=== PATIENT | female | born 1960 | race Caucasian/White ===

== ENCOUNTER → 2021-09-06 09:01 | Outpatient (BNVA) | payer OTHER, SELFPAY | PROVIDERS: PCP Internal Medicine; Visit Provider Nurse Practitioner Family ==

== ENCOUNTER → 2021-12-31 08:29 | Outpatient (BNVA) | payer OTHER, SELFPAY | PROVIDERS: PCP Physician Assistant Medical; Visit Provider Nurse Practitioner Family | DX: G47.33 Obstructive sleep apnea (adult) (pediatric) (principal) ==

== ENCOUNTER 2022-07-15 12:53 | Outpatient (REF) | payer OTHER, SELFPAY ==
[2022-07-15 17:58] LABS: Urine Cytology See Pathology rpt
== END 2022-07-15 12:54 | disposition home or self-care (01) ==
LOC: HO.LAB 12:53
PROVIDERS: PCP Physician Assistant Medical; Visit Provider Nurse Practitioner Family
DX: R31.29 Other microscopic hematuria (principal); N39.0 Urinary tract infection, site not specified
CPT/HCPCS: 51798; 88112

== ENCOUNTER 2022-08-07 10:27 | Outpatient (REF) | payer OTHER, SELFPAY ==
--- NOTE | ~2022-08-07 | US_ITS ---
EXAMINATION: US RETROPERITONEAL COMPLETE (RENAL) CLINICAL INFORMATION: Other microscopic hematuria. COMPARISON: Ultrasound kidneys and bladder 01/30/2016. TECHNIQUE: Real-time imaging of the kidneys and bladder. FINDINGS: RIGHT KIDNEY: 11.8 x 4.2 x 5.5 cm (SAG x AP x TRV). The kidney is normal in size, contour, and echogenicity. Renal cortical thickness is normal. No calculi or focal parenchymal lesions. No hydronephrosis. LEFT KIDNEY: 10.4 x 5.4 x 5.0 cm (SAG x AP x TRV). The kidney is normal in size, contour, and echogenicity. Renal cortical thickness is normal. No calculi or focal parenchymal lesions. No hydronephrosis. BLADDER: Well distended and normal. Bilateral ureteral jets are demonstrated. Prevoid bladder volume is 453 mL. Postvoid bladder volume is 13.7 mL. US/US retroperitoneal comp IMPRESSION: Unremarkable renal ultrasound. Normal bilateral ureteral jets. Small postvoid residual bladder volume.
== END 2022-08-07 10:28 | disposition home or self-care (01) ==
LOC: HO.HMGCX 10:27
PROVIDERS: Visit Provider Nurse Practitioner Family
DX: R31.29 Other microscopic hematuria (principal)
CPT/HCPCS: 76770

== ENCOUNTER 2022-08-15 09:57 | Outpatient (REF) | payer OTHER, SELFPAY ==
[2022-08-15 16:45] LABS: Urine Cytology See Pathology rpt
== END 2022-08-15 09:58 | disposition home or self-care (01) ==
LOC: HO.LAB 09:57
PROVIDERS: PCP Physician Assistant Medical; Visit Provider Nurse Practitioner Family
DX: R31.29 Other microscopic hematuria (principal); Z79.899 Other long term (current) drug therapy
CPT/HCPCS: 88112

== ENCOUNTER → 2022-10-14 09:24 | Outpatient (BNVA) | payer OTHER, SELFPAY | PROVIDERS: PCP Physician Assistant Medical; Visit Provider Nurse Practitioner Family | DX: Z13.89 Encounter for screening for other disorder (principal) ==

== ENCOUNTER 2023-02-17 15:02 | Outpatient (AMB) | payer MEDICARE, OTHER, SELFPAY ==
--- NOTE | 2023-02-17 15:04 | MHC.OFFVIS ---
Intake Intake Visit Reasons: UTI- 6m follow up Intake Note: Patient is present for follow up UTI/Microscopic Hematuria Urology Medication: estrace cream Blood Thinner: none PVR: 7ml's Underground Drill Operator Required: No Accompanied by: Self / Same As Patient Allergies dichloralphenazone [DICHLORALPHENAZONE] Allergy (Mild, Verified 02/17/23 22:37) ITCHING isometheptene [ISOMETHEPTENE] Allergy (Mild, Verified 02/17/23 22:37) ITCHING metronidazole [From FLAGYL] Allergy (Mild, Verified 02/17/23 22:37) RASH Amidrine Allergy (Mild, Uncoded 02/17/23 22:37) Unknown avocado Allergy (Unknown, Uncoded 02/17/23 22:37) diarrhea Duradryl Allergy (Unknown, Uncoded 02/17/23 22:37) Unknown quinoa Allergy (Unknown, Uncoded 02/17/23 22:37) diarrhea Medication List - Last Reconciled 02/17/23 by TREY Jarrett-MAURICE albuterol sulfate 90 mcg/actuation 2 puffs inhalation Q6H PRN calcium carbonate-vitamin D3 600 mg-25 mcg (1,000 unit) caps PO cholecalciferol (vitamin D3) 50 mcg PO DAILY epinephrine 0.3 mg IM Q4H PRN estradiol 0.01%(0.1mg/gram) (Estrace) 1 g vaginal 3XW lorazepam 0.5 mg PO DAILY PRN multivitamin 1 tab PO DAILY sumatriptan succinate 100 mg PO Q2-4H PRN HPI HPI Comments History of Present Illness Details Peg is a 62-year-old female who is a patient of Dr. Groves. She has a past medical history of iron deficiency anemia, celiac disease, umbilical hernia, vitamin-D deficiency, mitral valve prolapse, anxiety, hyperlipidemia, and migraines. She presents to the office today for follow up of her longstanding history of microscopic hematuria. In discussion with the patient today she reports to be doing and feeling well. She reports compliance with her Estrace cream. She reports typically utilizing Estrace cream 2-3 times per week. She reports she continues with infrequent what she calls senatations/feelings to urethra/vaginal area at times. However reports these episodes to be infrequent and not bothersome. In office urinalysis results reviewed with the patient today. 2+ microscopic hematuria otherwise within normal limits. Discussed at length potential causes for microscopic hematuria. Previous cytology from last office visit 09/01 Negative for high-grade urothelial carcinoma. Patient with previous cystoscopy in the past with Dr. Valera and results being within normal limits. She states that she would like to think about having one performed/completed. At this time declines cystoscopy. Imaging from 07/31 and cytology WNL. Discussed continuation with surveillance monitoring regarding microscopic hematuria. [facility] Medical History Microscopic hematuria Surgical History History of hernia surgery Family History Father Cancer Osteoporosis Mother Cancer FHx: colonic polyps Social History Alcohol intake: current Alcohol intake frequency: a few times a month Patient Tobacco Use Status: Never used Tobacco Review of Systems Const Reports no additional complaints Eyes Reports no additional complaints ENT Reports no additional complaints Card Reports as per HPI Resp Reports no additional complaints GI Reports as per HPI Reports as per HPI Neuro Reports no additional complaints and Reports Abnormal speech present Psych Reports as per HPI Physical Exam Const General: cooperative, healthy appearing, comfortable, no acute distress, well developed, alert and Physically active Nutritional Appearance: average body habitus and well nourished Orientation/consciousness: patient oriented x3 Limitations: no limitations HEENT Head: Yes normal to inspection and Yes normocephalic Ears: hearing grossly normal bilaterally Eyes General: appearance normal, both eyes and all related structures Neck Neck: Yes normal visual inspection Chest Chest palpation & inspection: normal inspection of the chest Breast/axilla inspection: normal inspection of the breasts Resp Effort & Inspection: normal respiratory effort and able to speak in complete sentences Cardio Jugular venous distension: no JVD GI Inspection: Yes normal to inspection General: Yes no CVA tenderness Back/Spine/Pelvis Back: no CVA tenderness Skin General skin exam: no rashes or lesions noted Neuro General: patient oriented x3 Cognition (Neuro): normal cognition Speech: Abnormal speech present Gait exam (Neuro): Normal gait present Extrem General: Yes normal to inspection Psych Appearance: grossly normal and well kempt Mental Status: mental status grossly normal Speech and movement: Normal speech and movement present Affect: normal affect Attitude: cooperative Thought process: Normal thought process present Thought content: Normal thought content present Insight: Good insight present (Psych) Judgement: Good judgement present (Psych) Office Procedures Post Void Residual Post Residual Void Post Void Residual (PVR): 7 [id number]-[id number] Void Residual by ultrasound Results AMB Urinalysis, Automated UA Leukoctes 0 Minh/uL Last Edit by [employer] on 02/17/23 15:42 UA Nitrite Negative Last Edit by [employer] on 02/17/23 15:42 UA Urobilinogen 0.2 mg/dL Last Edit by [employer] on 02/17/23 15:42 UA Protein 0 mg/dL Last Edit by [employer] on 02/17/23 15:42 UA pH 6.0 Last Edit by [employer] on 02/17/23 15:42 UA Blood 80 Rajan/uL Last Edit by [employer] on 02/17/23 15:42 UA Specific [place] 1.015 Last Edit by [employer] on 02/17/23 15:42 UA Ketone Negative Last Edit by [employer] on 02/17/23 15:42 UA Bilirubin 0 mg/dL Last Edit by [employer] on 02/17/23 15:42 UA Glucose 0 mg/dL Last Edit by [employer] on 02/17/23 15:42 Results Reviewed Results Reviewed: Laboratory Last Values Urine pH (Auto) 6.0 02/17/23 15:08 Specific [place] (Auto) 1.015 02/17/23 15:08 Urine Protein (Auto) 0 mg/dL 02/17/23 15:08 Glucose (UA)(Auto) 0 mg/dL 02/17/23 15:08 Urine Ketones (Auto) Negative 02/17/23 15:08 Urine Blood (Auto) 80 Rajan/uL 02/17/23 15:08 Urine Nitrite (Auto) Negative 02/17/23 15:08 Urine Bilirubin (Auto) 0 mg/dL 02/17/23 15:08 Urine Urobilinogen (Auto) 0.2 mg/dL 02/17/23 15:08 Leukocyte Esterase (Auto) 0 Minh/uL 02/17/23 15:08 Assessment & Plan Assessment & Plan (1) Microscopic hematuria: Code(s): R31.29 - Other microscopic hematuria Plan In office urinalysis results reviewed with the patient today; as noted above; will send for cytology Previous cytology results reviewed with the patient today. Continue Estrace cream as discussed and prescribed. Educated, encouraged, and instructed on the importance of drinking plenty of water daily. Discussed at length potential causes for microscopic hematuria. Discussed repeat cystoscopy given persistent microscopic hematuria Patient reports to be happy with current voiding parameters. Follow-up in 6 months; if not sooner with any issues, concerns, and or questions. Orders: Orders AMB Urinalysis Automated Today Z13.9 - Encounter for screening, unspecified AMB Post Void Residual by ultrasound Today R31.29 - Other microscopic hematuria Urine Cytology Today R31.29 - Other microscopic hematuria Patient Instructions: The patient had an opportunity to ask questions regarding the treatment plan. All questions were answered. Physical exam, labs, and imaging were discussed and reviewed in detail. As well as risks, benefits, and discussion of treatment choices. No major barriers to understanding were identified. The patient expressed understanding and agreement with the above treatment plan. The patient was made aware they should contact our office by phone for worsening of their current condition, the appearance of new symptoms, or with any questions or concerns. Compliance is encouraged with any medications and follow up testing that is ordered. It is a privilege to be allowed the opportunity to participate in? your urological care.? Again, if you have any questions or concerns If you have any questions or concerns please do not hesitate to contact me. The office is [phone]. This note is constructed using voice recognition software. While every effort has been made to ensure accuracy communication and outreach manager errors may have been included. Yours sincerely, LAURYN Jarrett Coding Level of Care Code Est Pt Level 3 (89195) Diagnoses Microscopic hematuria R31.29 CPT Codes Post Residual Void - PVR CPT Code: 93364-Ghtw Void Residual by ultrasound ([id number])
== END 2023-02-17 16:15 | disposition home or self-care (01) ==
PROVIDERS: Visit Provider Nurse Practitioner Family
DX: R31.29 Other microscopic hematuria (principal)
CPT/HCPCS: 99213

== ENCOUNTER → 2023-02-17 15:02 | Outpatient (BNVA) | payer OTHER, SELFPAY | PROVIDERS: Visit Provider Nurse Practitioner Family | DX: R31.29 Other microscopic hematuria (principal); N39.0 Urinary tract infection, site not specified; Z79.899 Other long term (current) drug therapy | CPT/HCPCS: 51798 ==

== ENCOUNTER 2023-04-20 09:12 | Outpatient (AMB) | payer MEDICARE, OTHER, SELFPAY ==
--- NOTE | 2023-04-20 09:23 | A.OFFVIS_ITS ---
Intake Vital Signs 04/20/23 09:25 Height 5 ft 5 in Weight 135 lb 8 oz BMI 22.5 BP 124/70 Blood Pressure Location Rt brachial Position Sitting Pulse 61 Pulse Source Pulse Oximeter Intake Visit Reasons: 6mnts f/u Migraine Intake Note: Patient presents for 6 month follow up migraines. Patient states I have no concerns everything is about the same. Allergies dichloralphenazone [DICHLORALPHENAZONE] Allergy (Mild, Verified 04/20/23 09:26) ITCHING isometheptene [ISOMETHEPTENE] Allergy (Mild, Verified 04/20/23 09:26) ITCHING metronidazole [From FLAGYL] Allergy (Mild, Verified 04/20/23 09:26) RASH Amidrine Allergy (Mild, Uncoded 04/20/23 09:26) Unknown avocado Allergy (Unknown, Uncoded 04/20/23 09:26) diarrhea Duradryl Allergy (Unknown, Uncoded 04/20/23 09:26) Unknown quinoa Allergy (Unknown, Uncoded 04/20/23 09:26) diarrhea Medication List - Last Reconciled 04/20/23 by RTEY Zhang albuterol sulfate 90 mcg/actuation 2 puffs inhalation Q6H PRN calcium carbonate-vitamin D3 600 mg-25 mcg (1,000 unit) caps PO cholecalciferol (vitamin D3) 50 mcg PO DAILY epinephrine 0.3 mg IM Q4H PRN estradiol 0.01%(0.1mg/gram) (Estrace) 1 g vaginal 3XW lorazepam 0.5 mg PO DAILY PRN multivitamin 1 tab PO DAILY sumatriptan succinate 100 mg PO Q2-4H PRN HPI HPI Comments History of Present Illness Details 63-yr-old female presents for f/u visit. Pt denies any significant interval medical changes. She notes that she is not using the green light as much in the summer due to being overall busier. She had the following headache days- 4 in January, 10 in February, 10 in Mar. All but one, occur later in the night. Only one attack occurred in the day. She is using Sumatriptan for most attacks, may use an OTC analgesic. Sometimes she has nausea after taking the Sumatriptan- she wonders if this is the migraine or the Sumatriptan. She is curious about using B2 and Mag. She is using her CPAP nightly with good effect. Tolerating CPAP at lower pressure of 6 cmH2O better, but still has some mild GI gas- but does not think it is bothersome enough to lower her pressure. Current compliance report: CPAP 6 cmH2O w/ EPR off, 100% use > 4 hrs, residual AHI 1.6/hr. [facility] Medical History Microscopic hematuria Surgical History History of hernia surgery Family History Father Cancer Osteoporosis Mother Cancer FHx: colonic polyps Social History Alcohol intake: current Alcohol intake frequency: a few times a month Patient Tobacco Use Status: Never used Tobacco Review of Systems Const All systems reviewed & are unremarkable except as noted in HPI and below Physical Exam Vital Signs: Last Vital Signs Pulse 61 04/20/23 09:25 BP 124/70 04/20/23 09:25 BMI result Body Mass Index 22.5 Const General: cooperative and no acute distress Orientation/consciousness: patient oriented x3 HEENT Head: Yes normocephalic Resp Effort & Inspection: normal respiratory effort and able to speak in complete sentences Neuro General: patient oriented x3, gait normal and CN's II-XI intact bilaterally Cognition (Neuro): normal cognition Motor exam (neuro): 5/5 motor strength present throughout Psych Appearance: grossly normal Mental Status: mental status grossly normal Speech and movement: Normal speech and movement present Affect: normal affect Attitude: cooperative Thought process: Normal thought process present Thought content: Normal thought content present Insight: Good insight present (Psych) Judgement: Good judgement present (Psych) Assessment & Plan Assessment & Plan (1) Severe obstructive sleep apnea: Comment: AHI 26/hr, O2 raj 88%. Code(s): G47.33 - Obstructive sleep apnea (adult) (pediatric) (2) Migraine without aura: Code(s): G43.009 - Migraine without aura, not intractable, without status migrainosus Plan For TRISTON- Continue CPAP 6 cmH2O nightly, as patient is experiencing good clinical effect from use. For migraine- Start OTC Riboflavin 400mg qam and Magnesium 400mg qhs. May use OTC Aleve tablets or liquid gels which show for mild headaches. May continue sumatriptan 50 mg at onset of migraine. May use CPAP at onset of migraine. Continue green light tx. f/u in 6 months or sooner prn. Medications: New riboflavin (vitamin B2) 400 mg PO DAILY 30 days 30 tabs 6RF magnesium oxide may hold for loose stools 400 mg PO BEDTIME 30 days 30 tabs 6RF Coding Level of Care Code Est Pt Level 4 (58889) Diagnoses Severe obstructive sleep apnea G47.33 Migraine without aura G43.009
[2023-04-20 09:25] VITALS: BP 124/70; PULSE 61; BMI 22.5
== END 2023-04-20 10:26 | disposition home or self-care (01) ==
PROVIDERS: Visit Provider Nurse Practitioner Family
DX: G47.33 Obstructive sleep apnea (adult) (pediatric) (principal); G43.009 Migraine without aura, not intractable, without status migrainosus
CPT/HCPCS: 99214

== ENCOUNTER → 2023-04-20 09:12 | Outpatient (BNVA) | payer OTHER, SELFPAY | PROVIDERS: Visit Provider Nurse Practitioner Family ==

== ENCOUNTER 2023-08-18 09:26 | Outpatient (REF) | payer MEDICARE, OTHER, SELFPAY ==
[2023-08-18 18:03] LABS: Urine Cytology See Pathology rpt
== END 2023-08-18 09:27 | disposition home or self-care (01) ==
LOC: HO.LNP 09:26
PROVIDERS: PCP Physician Assistant Medical; Visit Provider Nurse Practitioner Family
DX: R31.29 Other microscopic hematuria (principal)
CPT/HCPCS: 51798; 81003; 88112

== ENCOUNTER 2023-08-18 09:26 | Outpatient (AMB) | payer MEDICARE, OTHER, SELFPAY ==
--- NOTE | 2023-08-18 09:26 | MHC.OFFVIS ---
Intake Intake Visit Reasons: 6m/ follow up Intake Note: Patient is present for follow up UTI/Microscopic Hematuria Urology Medication: estrace cream Blood Thinner: none PVR: 0ml's Director [employer]s Required: No Accompanied by: Self / Same As Patient Allergies dichloralphenazone [DICHLORALPHENAZONE] Allergy (Mild, Verified 08/18/23 10:13) ITCHING isometheptene [ISOMETHEPTENE] Allergy (Mild, Verified 08/18/23 10:13) ITCHING metronidazole [From FLAGYL] Allergy (Mild, Verified 08/18/23 10:13) RASH Amidrine Allergy (Mild, Uncoded 08/18/23 10:13) Unknown avocado Allergy (Unknown, Uncoded 08/18/23 10:13) diarrhea Duradryl Allergy (Unknown, Uncoded 08/18/23 10:13) Unknown quinoa Allergy (Unknown, Uncoded 08/18/23 10:13) diarrhea Medication List - Last Reconciled 08/18/23 by TREY Jarrett-MAURICE albuterol sulfate 90 mcg/actuation 2 puffs inhalation Q6H PRN calcium carbonate-vitamin D3 600 mg-25 mcg (1,000 unit) caps PO cholecalciferol (vitamin D3) 50 mcg PO DAILY epinephrine 0.3 mg IM Q4H PRN estradiol 0.01%(0.1mg/gram) (Estrace) 1 g vaginal 3XW lorazepam 0.5 mg PO DAILY PRN magnesium oxide 400 mg PO BEDTIME 30 days multivitamin 1 tab PO DAILY riboflavin (vitamin B2) 400 mg PO DAILY 30 days sumatriptan succinate 100 mg PO Q2-4H PRN HPI HPI Comments History of Present Illness Details Peg is a pleasant 63-year-old female who is a patient of Dr. Groves. She has a past medical history of iron deficiency anemia, celiac disease, umbilical hernia, vitamin-D deficiency, mitral valve prolapse, anxiety, hyperlipidemia, and migraines. She presents to the office today for follow up of her longstanding history of microscopic hematuria. In discussion with the patient today she reports to be doing and feeling well. She reports compliance with her Estrace cream. She reports typically utilizing Estrace cream 2-3 times per week. She reports she continues with infrequent what she calls senatations/feelings to urethra/vaginal area at times. However reports these episodes to be infrequent and not bothersome. She also discusses feeling the sensations have lessened since her last office visit here approximately 6 months ago. In office urinalysis results reviewed with the patient today. 1+ microscopic hematuria otherwise within normal limits. Discussed at length potential causes for microscopic hematuria. Previous cytology from last office visit 09/01 Negative for high-grade urothelial carcinoma. Patient with previous cystoscopy in the past with Dr. Valera and results being within normal limits. Imaging from 07/31 and cytology WNL. Discussed continuation with surveillance monitoring regarding microscopic hematuria. She discusses at length celebrating her 's recent 68th birthday and is looking for to the new year. She otherwise offers no other issues or concerns at this time. [facility] Medical History Microscopic hematuria Surgical History History of hernia surgery Family History Father Cancer Osteoporosis Mother Cancer FHx: colonic polyps Social History Alcohol intake: current Alcohol intake frequency: a few times a month Patient Tobacco Use Status: Never used Tobacco Review of Systems Const Reports no additional complaints Eyes Reports no additional complaints ENT Reports no additional complaints Card Reports as per HPI Resp Reports no additional complaints GI Reports as per HPI Reports as per HPI Musc Reports no additional complaints Neuro Reports no additional complaints Psych Reports as per HPI Endo Reports as per HPI Demian/Lymph Reports no additional complaints Aller/Immun Reports no additional complaints Physical Exam Const General: cooperative, healthy appearing, comfortable, no acute distress, well developed, alert and Physically active Nutritional Appearance: average body habitus and well nourished Orientation/consciousness: patient oriented x3 Limitations: no limitations HEENT Head: Yes normal to inspection and Yes normocephalic Ears: hearing grossly normal bilaterally Eyes General: appearance normal, both eyes and all related structures Neck Neck: Yes normal visual inspection Chest Chest palpation & inspection: normal inspection of the chest Breast/axilla inspection: normal inspection of the breasts Resp Effort & Inspection: normal respiratory effort and able to speak in complete sentences Cardio Jugular venous distension: no JVD GI Inspection: Yes normal to inspection General: Yes no CVA tenderness Back/Spine/Pelvis Back: no CVA tenderness Skin General skin exam: no rashes or lesions noted Neuro General: patient oriented x3 Cognition (Neuro): normal cognition Gait exam (Neuro): Normal gait present Extrem General: Yes normal to inspection Psych Appearance: grossly normal and well kempt Mental Status: mental status grossly normal Speech and movement: Normal speech and movement present Affect: normal affect Attitude: cooperative Thought process: Normal thought process present Thought content: Normal thought content present Insight: Good insight present (Psych) Judgement: Good judgement present (Psych) Office Procedures Post Void Residual Post Residual Void Post Void Residual (PVR): 0 31715-Eqrb Void Residual by ultrasound Results AMB Urinalysis, Automated UA Leukoctes 0 Minh/uL Last Edit by [employer] on 08/18/23 09:41 UA Nitrite Negative Last Edit by [employer] on 08/18/23 09:41 UA Urobilinogen 0.2 mg/dL Last Edit by [employer] on 08/18/23 09:41 UA Protein 0 mg/dL Last Edit by [email or web address] on 08/18/23 09:41 UA pH 6.0 Last Edit by [employer] on 08/18/23 09:41 UA Blood 25 Rajan/uL Last Edit by [employer] on 08/18/23 09:41 UA Specific [place] 1.005 Last Edit by [employer] on 08/18/23 09:41 UA Ketone Negative Last Edit by [employer] on 08/18/23 09:41 UA Bilirubin 0 mg/dL Last Edit by [employer] on 08/18/23 09:41 UA Glucose 0 mg/dL Last Edit by [employer] on 08/18/23 09:41 Results Reviewed Results Reviewed: Laboratory Last Values Urine pH (Auto) 6.0 08/18/23 09:32 Specific [place] (Auto) 1.005 08/18/23 09:32 Urine Protein (Auto) 0 mg/dL 08/18/23 09:32 Glucose (UA)(Auto) 0 mg/dL 08/18/23 09:32 Urine Ketones (Auto) Negative 08/18/23 09:32 Urine Blood (Auto) 25 Rajan/uL 08/18/23 09:32 Urine Nitrite (Auto) Negative 08/18/23 09:32 Urine Bilirubin (Auto) 0 mg/dL 08/18/23 09:32 Urine Urobilinogen (Auto) 0.2 mg/dL 08/18/23 09:32 Leukocyte Esterase (Auto) 0 Minh/uL 08/18/23 09:32 Assessment & Plan Assessment & Plan (1) Microscopic hematuria: Code(s): R31.29 - Other microscopic hematuria Plan In office urinalysis results reviewed with the patient today; as noted above; will send for cytology Previous cytology results reviewed with the patient today. Continue Estrace cream as discussed and prescribed. Educated, encouraged, and instructed on the importance of drinking plenty of water daily. Discussed at length potential causes for microscopic hematuria. Will continue with surveillance monitoring Patient reports to be happy with current voiding parameters. Follow-up in 6 months; if not sooner with any issues, concerns, and or questions. Orders: Orders AMB Post Void Residual by ultrasound Today R30.0 - Dysuria AMB Urinalysis Automated Today Z13.9 - Encounter for screening, unspecified Urine Cytology Today R31.29 - Other microscopic hematuria Patient Instructions: The patient had an opportunity to ask questions regarding the treatment plan. All questions were answered. Physical exam, labs, and imaging were discussed and reviewed in detail. As well as risks, benefits, and discussion of treatment choices. No major barriers to understanding were identified. The patient expressed understanding and agreement with the above treatment plan. The patient was made aware they should contact our office by phone for worsening of their current condition, the appearance of new symptoms, or with any questions or concerns. Compliance is encouraged with any medications and follow up testing that is ordered. It is a privilege to be allowed the opportunity to participate in? your urological care.? Again, if you have any questions or concerns If you have any questions or concerns please do not hesitate to contact me. The office is [phone]. This note is constructed using voice recognition software. While every effort has been made to ensure accuracy intern brand errors may have been included. Yours sincerely, LAURYN Jarrett Coding Level of Care Code Est Pt Level 3 (36403) Diagnoses Microscopic hematuria R31.29 CPT Codes Post Residual Void - PVR CPT Code: 80949-Micz Void Residual by ultrasound ([id number])
== END 2023-08-18 10:07 | disposition home or self-care (01) ==
PROVIDERS: PCP Physician Assistant Medical; Visit Provider Nurse Practitioner Family
DX: R31.29 Other microscopic hematuria (principal); Z13.9 Encounter for screening, unspecified
CPT/HCPCS: 99213

== ENCOUNTER 2023-10-19 09:18 | Outpatient (AMB) | payer MEDICARE, OTHER, SELFPAY ==
--- NOTE | 2023-10-19 09:30 | MHC.OFFVIS ---
Intake Vital Signs 10/19/23 09:33 Height 5 ft Weight 138 lb BMI 26.9 BP 118/72 Blood Pressure Location Rt brachial Position Sitting Pulse 62 Pulse Source Pulse Oximeter Pulse Oximetry (%) 100 Oxygen Delivery Method Room Air Intake Visit Reasons: 6mnts f/u Migraine-LVM Intake Note: Patient presents for 6 month follow up migraines. migraines have been the same,My cpap is going well. Allergies dichloralphenazone [DICHLORALPHENAZONE] Allergy (Mild, Verified 10/19/23 09:45) ITCHING isometheptene [ISOMETHEPTENE] Allergy (Mild, Verified 10/19/23 09:45) ITCHING metronidazole [From FLAGYL] Allergy (Mild, Verified 10/19/23 09:45) RASH Amidrine Allergy (Mild, Uncoded 10/19/23 09:45) Unknown avocado Allergy (Unknown, Uncoded 10/19/23 09:45) diarrhea Duradryl Allergy (Unknown, Uncoded 10/19/23 09:45) Unknown quinoa Allergy (Unknown, Uncoded 10/19/23 09:45) diarrhea Medication List - Last Reconciled 10/19/23 by TREY Zhang albuterol sulfate 90 mcg/actuation 2 puffs inhalation Q6H PRN calcium carbonate-vitamin D3 600 mg-25 mcg (1,000 unit) caps PO cholecalciferol (vitamin D3) 50 mcg PO DAILY epinephrine 0.3 mg IM Q4H PRN estradiol 0.01%(0.1mg/gram) (Estrace) 1 g vaginal 3XW lorazepam 0.5 mg PO DAILY PRN magnesium oxide 400 mg PO BEDTIME 30 days multivitamin 1 tab PO DAILY riboflavin (vitamin B2) 400 mg PO DAILY 30 days rosuvastatin 5 mg PO DAILY sumatriptan succinate 100 mg PO Q2-4H PRN HPI HPI Comments History of Present Illness Details 63-yr-old female presents for f/u visit. In Jun, pt had bronchitis- tx's w/ ABT and prednisone In Jul, mild Covid-19- primarliy exhaustion x's 1 week. In Aug, had head/nasal cold x's 2 weeks. In Sep, pt was tx'd w/ PCN for a strep infection. Pt had migraine days- Jun 10 days, Jul 14, Aug 10 days, Sep- 8 days had a more intense migraine and then next 3 days the migraine was milder, then she had another 7 migraine days (notes that while on N she did not have any headache x's those 7 days). October- so far 2 migraine days. Noticing more GERD s/s during/with her migraine. She is using her CPAP regularly. Generally tolerates this well. Usually, her AHI is < 5/hr, rarely it can be just over 5. However, some days she may wake up with a burning sensation in her nose, and when this occurs she does have a migraine. She has been using Ponaris Nasal Emollient to help with her nasal congestion- saline sprays tend to be more irritating. [employer] Medical History Microscopic hematuria Surgical History History of hernia surgery Family History Father Cancer Osteoporosis Mother Cancer FHx: colonic polyps Social History Alcohol intake: current Alcohol intake frequency: a few times a month Patient Tobacco Use Status: Never used Tobacco Physical Exam Vital Signs: Last Vital Signs Pulse 62 10/19/23 09:33 BP 118/72 10/19/23 09:33 Pulse Ox 100 10/19/23 09:33 Oxygen Delivery Method Room Air 10/19/23 09:33 BMI result Body Mass Index 26.9 Const General: cooperative and no acute distress Orientation/consciousness: patient oriented x3 Resp Effort & Inspection: normal respiratory effort and able to speak in complete sentences Neuro General: patient oriented x3 Cranial nerves: Yes CN's II-XII intact bilaterally Cognition (Neuro): normal cognition Psych Appearance: grossly normal Mental Status: mental status grossly normal Speech and movement: Normal speech and movement present Affect: normal affect Attitude: cooperative Assessment & Plan Assessment & Plan (1) Severe obstructive sleep apnea: Comment: AHI 26/hr, O2 raj 88%. Code(s): G47.33 - Obstructive sleep apnea (adult) (pediatric) (2) Migraine without aura: Code(s): G43.009 - Migraine without aura, not intractable, without status migrainosus Plan For TRISTON- Continue CPAP 6 cmH2O nightly, as patient is experiencing good clinical effect from use. May try using a buffered pressurized saline spray prior to using the Ponaris Nasal Emollient. F/u w/ ENT as scheduled. ? For migraine- OTC Riboflavin 400mg qam and Magnesium 400mg qhs. May use OTC Aleve tablets or liquid gels which show for mild headaches. May continue sumatriptan 50 mg at onset of migraine. May use CPAP at onset of migraine. Continue green light tx. Discussed trying a preventive migraine tx- such as Amitriptyline- pt will consider. Would avoid BBs d/t asthma/COPD dx. ? f/u in 6 months or sooner prn. Coding Level of Care Code Est Pt Level 4 (09148) Diagnoses Severe obstructive sleep apnea G47.33 Migraine without aura G43.009
[2023-10-19 09:33] VITALS: BP 118/72; PULSE 62; O2SAT 100; BMI 26.9
== END 2023-10-19 10:47 | disposition home or self-care (01) ==
PROVIDERS: PCP Physician Assistant Medical; Visit Provider Nurse Practitioner Family
DX: G47.33 Obstructive sleep apnea (adult) (pediatric) (principal); G43.009 Migraine without aura, not intractable, without status migrainosus
CPT/HCPCS: 99214

== ENCOUNTER → 2023-10-19 09:18 | Outpatient (BNVA) | payer OTHER, SELFPAY | PROVIDERS: PCP Physician Assistant Medical; Visit Provider Nurse Practitioner Family ==

== ENCOUNTER 2024-02-16 08:35 | Outpatient (REF) | payer MEDICARE, OTHER, SELFPAY ==
[2024-02-16 16:55] LABS: Urine Cytology See Pathology rpt
== END 2024-02-16 08:36 | disposition home or self-care (01) ==
LOC: HO.LNP 08:35
PROVIDERS: PCP Physician Assistant Medical; Visit Provider Nurse Practitioner Family
DX: R31.29 Other microscopic hematuria (principal); R30.0 Dysuria
CPT/HCPCS: 51798; 81003; 88112; 99212

== ENCOUNTER 2024-02-16 08:35 | Outpatient (AMB) | payer MEDICARE, OTHER, SELFPAY ==
--- NOTE | 2024-02-16 08:47 | A.OFFVIS_ITS ---
Intake Visit Reasons: 6m follow up Candle Maker Required: No Allergies dichloralphenazone [DICHLORALPHENAZONE] Allergy (Mild, Verified 02/16/24 21:52) ITCHING isometheptene [ISOMETHEPTENE] Allergy (Mild, Verified 02/16/24 21:52) ITCHING metronidazole [From FLAGYL] Allergy (Mild, Verified 02/16/24 21:52) RASH Amidrine Allergy (Mild, Uncoded 02/16/24 21:52) Unknown avocado Allergy (Unknown, Uncoded 02/16/24 21:52) diarrhea Duradryl Allergy (Unknown, Uncoded 02/16/24 21:52) Unknown quinoa Allergy (Unknown, Uncoded 02/16/24 21:52) diarrhea Medication List - Last Reconciled 02/16/24 by TREY Jarrett-MAURICE albuterol sulfate 90 mcg/actuation 2 puffs inhalation Q6H PRN amitriptyline 10 mg PO BEDTIME 30 days calcium carbonate-vitamin D3 600 mg-25 mcg (1,000 unit) caps PO cholecalciferol (vitamin D3) 50 mcg PO DAILY epinephrine 0.3 mg IM Q4H PRN estradiol 0.01%(0.1mg/gram) (Estrace) 1 g vaginal 3XW 90 days lorazepam 0.5 mg PO DAILY PRN magnesium oxide 400 mg PO BEDTIME 30 days multivitamin 1 tab PO DAILY riboflavin (vitamin B2) 400 mg PO DAILY 30 days rosuvastatin 5 mg PO DAILY sumatriptan succinate 100 mg PO Q2-4H PRN HPI Comments Details: Peg is a pleasant 63-year-old female who is a patient of Dr. Groves. She has a past medical history of iron deficiency anemia, celiac disease, umbilical hernia, vitamin-D deficiency, mitral valve prolapse, anxiety, hyperlipidemia, and migraines. She presents to the office today for follow up of her longstanding history of microscopic hematuria. In discussion with the patient today she reports to be doing and feeling well. She reports since her last office visit here 6 months ago she has since followed up with a [facility] provider as she wanted to further assess her cronhs disease. She states that she was diagnosed with babesiosis however and following up with her PCP recommendations were made for referral to Infectious Disease. She reports having followed up with an infectious disease doctor at [facility] who did not believe she had babesiosis. She reports having had blood work done that noted a positive VIJAYA and is awaiting referral to life enrichment specialist for further assessment evaluation. She reports she had been feeling somewhat with low energy/fatigue in the beginning of the year however feels this has somewhat subsided. She also reports being unsure if this was related to COVID that she was diagnosed with July of 2023. She reports having stopped her Estrace cream as prescribed as she had felt episodes of urethra/vaginal senatations/feelings she had been experiencing had subsided. She reports having followed up with her obstetrics gyn for lower abdominal/bladder pressure she had been experiencing however this has also subsided. She currently denies any bothersome urinary issues or concerns. In office urinalysis results reviewed with the patient today. 2+ microscopic hematuria otherwise within normal limits. She currently denies urinary urgency, urinary frequency, incontinence, nocturia, hematuria, dysuria, foul smelling urine, changes to urinary stream, flank pain, fever, and or chills. She is happy with her current voiding parameters. PVR 22 mL. Discussed at length potential causes for microscopic hematuria. Previous cytology 09/01 Negative for high-grade urothelial carcinoma 09/02 Negative for high-grade urothelial carcinoma. Patient with previous cystoscopy in the past with Dr. Valera that NAD. She denies any previous history of smoking and or workplace chemical exposure. She otherwise offers no other issues or concerns at this time. [facility] Medical History Microscopic hematuria Surgical History History of hernia surgery Family History Father Cancer Osteoporosis Mother Cancer FHx: colonic polyps Social History Alcohol intake: current Alcohol intake frequency: a few times a month Patient Tobacco Use Status: Never used Tobacco Review of Systems Const Reports no additional complaints Eyes Reports no additional complaints ENT Reports no additional complaints Card Reports as per HPI Resp Reports no additional complaints GI Reports as per HPI Reports as per HPI Musc Reports no additional complaints Neuro Reports no additional complaints Psych Reports as per HPI Endo Reports as per HPI Demian/Lymph Reports no additional complaints Aller/Immun Reports no additional complaints Physical Exam Const General: cooperative, healthy appearing, comfortable, no acute distress, well developed, alert and Physically active Nutritional Appearance: average body habitus and well nourished Orientation/consciousness: patient oriented x3 Limitations: no limitations HEENT Head: Yes normal to inspection and Yes normocephalic Ears: hearing grossly normal bilaterally Eyes General: appearance normal, both eyes and all related structures Neck Neck: Yes normal visual inspection Chest Chest palpation & inspection: normal inspection of the chest Breast/axilla inspection: normal inspection of the breasts Resp Effort & Inspection: normal respiratory effort and able to speak in complete sentences Cardio Jugular venous distension: no JVD GI Inspection: Yes normal to inspection General: Yes no CVA tenderness Back/Spine/Pelvis Back: no CVA tenderness Skin General skin exam: no rashes or lesions noted Neuro General: patient oriented x3 Cognition (Neuro): normal cognition Gait exam (Neuro): Normal gait present Extrem General: Yes normal to inspection Psych Appearance: grossly normal and well kempt Mental Status: mental status grossly normal Speech and movement: Normal speech and movement present Affect: normal affect Attitude: cooperative Thought process: Normal thought process present Thought content: Normal thought content present Insight: Good insight present (Psych) Judgement: Good judgement present (Psych) Office Procedures Post Void Residual Post Residual Void Post Void Residual (PVR): 22 51595-[id number] Void Residual by ultrasound Results AMB Urinalysis, Automated UA Leukoctes 0 Minh/uL Last Edit by Vijaya Moreau on 02/16/24 09:02 UA Nitrite Negative Last Edit by Vijaya Moreau on 02/16/24 09:02 UA Urobilinogen 0 mg/dL Last Edit by Vijaya Moreau on 02/16/24 09:02 UA Protein 0 mg/dL Last Edit by Vijaya Moreau on 02/16/24 09:02 UA pH 6.0 Last Edit by Vijaya Moreua on 02/16/24 09:02 UA Blood 80 Rajan/uL Last Edit by Vijaya Moreau on 02/16/24 09:02 UA Specific [place] 1.010 Last Edit by Vijaya Moreau on 02/16/24 09:02 UA Ketone Negative Last Edit by Vijaya Moreau on 02/16/24 09:02 UA Bilirubin 0 mg/dL Last Edit by Vijaya Moreau on 02/16/24 09:02 UA Glucose 0 mg/dL Last Edit by Vijaya Prieto on 02/16/24 09:02 Results Reviewed Results Reviewed: Laboratory Last Values Urine pH (Auto) 6.0 02/16/24 09:01 Specific [place] (Auto) 1.010 02/16/24 09:01 Urine Protein (Auto) 0 mg/dL 02/16/24 09:01 Glucose (UA)(Auto) 0 mg/dL 02/16/24 09:01 Urine Ketones (Auto) Negative 02/16/24 09:01 Urine Blood (Auto) 80 Rajan/uL 02/16/24 09:01 Urine Nitrite (Auto) Negative 02/16/24 09:01 Urine Bilirubin (Auto) 0 mg/dL 02/16/24 09:01 Urine Urobilinogen (Auto) 0 mg/dL 02/16/24 09:01 Leukocyte Esterase (Auto) 0 Minh/uL 02/16/24 09:01 Assessment & Plan Assessment & Plan (1) Microscopic hematuria: Code(s): R31.29 - Other microscopic hematuria Category: Medical Plan In office urinalysis results reviewed with the patient today; as noted above; will send for cytology Previous cytology results reviewed with the patient today. Continue Estrace cream as discussed and prescribed; refill provided Educated, encouraged, and instructed on the importance of drinking plenty of water daily. Discussed at length potential causes for microscopic hematuria. Will continue with surveillance monitoring at this time Patient reports to be happy with current voiding parameters. Follow-up in 6 months; if not sooner with any issues, concerns, and or questions. Orders: Orders AMB Urinalysis Automated Today R30.0 - Dysuria, R31.29 - Other microscopic hematuria AMB Post Void Residual by ultrasound Today R30.0 - Dysuria, R31.29 - Other microscopic hematuria Urine Cytology Today R31.29 - Other microscopic hematuria Medications: Changed From estradiol 0.01%(0.1mg/gram) (Estrace) 1 g vaginal 3XW 42.5 grams 0RF To estradiol 0.01%(0.1mg/gram) (Estrace) Pea-sized amount to urethra 3 times per week 1 g vaginal 3XW 90 days 42.5 grams 3RF Refilled estradiol 0.01%(0.1mg/gram) (Estrace) Pea-sized amount to urethra 3 times per week 1 g vaginal 3XW 90 days 42.5 grams 3RF Patient Instructions: The patient had an opportunity to ask questions regarding the treatment plan. All questions were answered. Physical exam, labs, and imaging were discussed and reviewed in detail. As well as risks, benefits, and discussion of treatment choices. No major barriers to understanding were identified. The patient expressed understanding and agreement with the above treatment plan. The patient was made aware they should contact our office by phone for worsening of their current condition, the appearance of new symptoms, or with any questions or concerns. Compliance is encouraged with any medications and follow up testing that is ordered. It is a privilege to be allowed the opportunity to participate in? your urological care.? Again, if you have any questions or concerns If you have any questions or concerns please do not hesitate to contact me. The office is [phone]. This note is constructed using voice recognition software. While every effort has been made to ensure accuracy wildlife management professor errors may have been included. Yours sincerely, LAURYN Jarrett Coding Level of Care Code Est Pt Level 4 (15477) Diagnoses Microscopic hematuria R31.29 CPT Codes Post Residual Void - PVR CPT Code: [id number]-[id number] Void Residual by ultrasound ([id number])
== END 2024-02-16 09:40 | disposition home or self-care (01) ==
PROVIDERS: PCP Physician Assistant Medical; Visit Provider Nurse Practitioner Family
DX: R30.0 Dysuria (principal); R31.29 Other microscopic hematuria
CPT/HCPCS: 99214

== ENCOUNTER 2024-05-16 14:23 | Outpatient (AMB) | payer MEDICARE, OTHER, SELFPAY ==
[2024-05-16 14:38] VITALS: BP 118/74; BMI 26.6
--- NOTE | 2024-05-16 14:38 | MHC.OFFVIS ---
Vital Signs 05/16/24 14:38 Height 5 ft Weight 136 lb BMI 26.6 BP 118/74 Blood Pressure Location Rt brachial Intake Visit Reasons: 6 mo f/u Intake Note: Patient presents for follow up Allergies dichloralphenazone [DICHLORALPHENAZONE] Allergy (Mild, Verified 05/16/24 14:43) ITCHING isometheptene [ISOMETHEPTENE] Allergy (Mild, Verified 05/16/24 14:43) ITCHING metronidazole [From FLAGYL] Allergy (Mild, Verified 05/16/24 14:43) RASH Amidrine Allergy (Mild, Uncoded 05/16/24 14:43) Unknown avocado Allergy (Unknown, Uncoded 05/16/24 14:43) diarrhea Duradryl Allergy (Unknown, Uncoded 05/16/24 14:43) Unknown quinoa Allergy (Unknown, Uncoded 05/16/24 14:43) diarrhea HPI Comments Details: 64-yr-old female presents for f/u visit of migraine and TRISTON. Since the last visit, pt had an increase in migarine attacks, and was started on Amitriptyline. Pt reports she is having less migraine days per month, now less than 15 days per month. She is now taking Amitriptyline 5mg qhs- tried taking 10mg but this caused am sleepiness. She also started a type of acupuncture- a pressure type, which does seem to be helping some. Her acute tx is working more effectively. Was noticing burning nose pain w/ CPAP prior to migraine but this improved w/ using pressurized saline nasal spray. She is using her CPAP regularly. Generally tolerates this well. Usually, her AHI is < 5/hr, rarely it can be just over 5. PFSH Medical History Microscopic hematuria Surgical History History of hernia surgery Family History Father Cancer Osteoporosis Mother Cancer FHx: colonic polyps Social History Alcohol intake: current Alcohol intake frequency: a few times a month Patient Tobacco Use Status: Never used Tobacco Physical Exam Vital Signs: Last Vital Signs BP 118/74 05/16/24 14:38 BMI result Body Mass Index 26.6 Const General: cooperative and no acute distress Orientation/consciousness: patient oriented x3 Resp Effort & Inspection: normal respiratory effort and able to speak in complete sentences Neuro General: patient oriented x3 Cranial nerves: Yes CN's II-XII intact bilaterally Cognition (Neuro): normal cognition Psych Appearance: grossly normal Mental Status: mental status grossly normal Speech and movement: Normal speech and movement present Affect: normal affect Attitude: cooperative Assessment & Plan Assessment & Plan (1) Migraine without aura: Code(s): G43.009 - Migraine without aura, not intractable, without status migrainosus Category: Medical (2) Severe obstructive sleep apnea: Comment: AHI 26/hr, O2 raj 88%. Code(s): G47.33 - Obstructive sleep apnea (adult) (pediatric) Category: Medical Plan For TRISTON- Continue CPAP 6 cmH2O nightly, as patient is experiencing good clinical effect from use. Continue buffered pressurized saline spray prior to using the Ponaris Nasal Emollient. F/u w/ ENT as scheduled. ? For migraine- Continue Amitriptyline 5mg qhs- may try to increase to 7.5mg qhs. OTC Riboflavin 400mg qam and Magnesium 400mg qhs. May use OTC Aleve tablets or liquid gels for mild headaches. Continue sumatriptan 50 mg at onset of migraine. May use CPAP at onset of migraine. Continue green light tx. Would avoid BBs d/t asthma/COPD dx. Future considerations- Nortriptyline, Topiramate, CGRP MaB ? f/u in 6 months or sooner prn. Coding Level of Care Code Est Pt Level 4 (26358) Diagnoses Migraine without aura G43.009 Severe obstructive sleep apnea G47.33
== END 2024-05-16 15:26 | disposition home or self-care (01) ==
PROVIDERS: PCP Physician Assistant Medical; Visit Provider Nurse Practitioner Family
DX: G43.009 Migraine without aura, not intractable, without status migrainosus (principal); G47.33 Obstructive sleep apnea (adult) (pediatric)
CPT/HCPCS: 99214

== ENCOUNTER → 2024-05-16 14:23 | Outpatient (BNVA) | payer MEDICARE, OTHER, SELFPAY | PROVIDERS: PCP Physician Assistant Medical; Visit Provider Nurse Practitioner Family | DX: G43.009 Migraine without aura, not intractable, without status migrainosus (principal); G47.33 Obstructive sleep apnea (adult) (pediatric) | CPT/HCPCS: 99212 ==

== ENCOUNTER 2024-08-23 08:22 | Outpatient (REF) | payer MEDICARE, OTHER, SELFPAY ==
[2024-08-23 16:32] LABS: Urine Cytology See Pathology rpt
== END 2024-08-23 08:23 | disposition home or self-care (01) ==
LOC: HO.LAB 08:22
PROVIDERS: PCP Physician Assistant Medical; Visit Provider Nurse Practitioner Family
DX: R31.29 Other microscopic hematuria (principal)
CPT/HCPCS: 51798; 81003; 88112; 99212

== ENCOUNTER 2024-08-23 08:22 | Outpatient (AMB) | payer MEDICARE, OTHER, SELFPAY ==
--- OUTSIDE RECORDS SUMMARY | 2024-08-23 08:44 | XMS_ITS | Patient Health Record ---
[facility] Organization [facility] [place] [address] [place] [address] Care Team Providers Care Transition Specialist Name Role Phone León Holguin Primary Care Provider Unacoreen juan manuel Peterson Leonid Unavailable [phone] Allergies Allergen (clinical drug ingredient) Drug/Non Drug Allergy documented on EMR Reaction Allergy Type Onset Date Status Doradrin (uncoded) rash, itchy hands Allergy Active metronidazole Flagyl rash Drug Allergy Act letty Penicillin rash Drug Allergy Active Reason For Referral No Information Medications Medication SIG (Take, Route, Frequency, Duration) Notes Start Date End Date Status Gabapentin 150 MG as directed Orally Not-Taking Advil 200 MG 1 tablet as needed Orally every 6 hrs 12/15/2012 Not-Taking Melatonin 1 MG 1 capsule at bedtime as needed with food Orally Once a day for 30 day(s) Not-Taking LORazepam 0.5 MG 1 tablet at bedtime as needed Orally Once a day PRN Active SUMAtriptan Succinate 50 MG 1 tablet as needed one time Orally Once a day for 1 day(s) PRN Active Trazodone & Diet Manage Prod 50 MG Orally Not-Taking Custom Orthotics . . . please use metatarsal pad shayna for . 04/23/2015 Not-Taking Voltaren 1 % as directed Externally 07/07/2022 Active Custom Orthotics as directed Add metatarsal pads B/L Dx Hallux Valgus, pes planus B/L 06/18/2021 Active Vitamin D 1000 UNIT 1 tablet Orally Once a day for 30 day(s) Not-Taking Social History Tobacco Use: Social History Observation Description Date Details (start date - stop date) Never Smoker NA - NA Tobacco Use/Smoking Question Answer Notes Are you a: nonsmoker Alcohol Screen Question Answer Notes Did you have a drink contain ing alcohol in the past year? Yes How often did you have a dri nk containing alcohol in the past year? 2 to 3 times a week (3 points) How often did you have 6 or more drinks on one occasion in the past year? Weekly (3 points) Points 6 Interpretation Positive Tobacco use other than smoking: Question Answer Notes Are you an other tobacco user? No Problems Problem Type SNOMED Code ICD Code Onset Dates Problem Status W/U Status Risk Notes Problem Hallux valgus (570027397) Hallux Valgus (735.0) Active confirmed Problem [id number] Hallux valgus (acquired), left foot (M20.12) Active confirmed Problem [id number] Hallux valgus (acquired), right foot (M20.11) Active confirmed Plan Of Treatment Pending Test Test Name Order Date X ray : Foot, left 2V 12/15/2012 X ray : Foot, right 2V 12/15/2012 X ray : Foot, left 3V 07/07/2022 X ray : Foot, right 3V 10/30/2014 X ray : Foot, right 3V 07/07/2022 Insurance Providers Payer Name Payer Address Payer Phone Subscriber Number Group Number Insured Name Patient Relationship to Insured Coverage Start Date Coverage End Date [employer] ([facility]) [address] [place] [id number] [place] [address] Self - patient is the insured Medical (General) History Medical History History ICD Code headaches lyme disease chicken pox measles celiac disease Anemia asthma Back,Hip,and Knee pain CAD (Cholesterol) Surgical History Surgery Date(Month/Year) appendectomy 1992 inguinal hernia 1993
--- NOTE | 2024-08-23 08:46 | MHC.OFFVIS ---
Intake Visit Reasons: 6m follow up Intake Note: Patient is Present for Follow Up Urology Medication: Estradiol Antibiotic Allergies: None Blood Thinners: None Last PVR:22ML Todays PVR: 0ml Matlab Developer Required: No Accompanied by: Self / Same As Patient Allergies dichloralphenazone [DICHLORALPHENAZONE] Allergy (Mild, Verified 08/23/24 09:36) ITCHING isometheptene [ISOMETHEPTENE] Allergy (Mild, Verified 08/23/24 09:36) ITCHING metronidazole [From FLAGYL] Allergy (Mild, Verified 08/23/24 09:36) RASH Amidrine Allergy (Mild, Uncoded 08/23/24 09:36) Unknown avocado Allergy (Unknown, Uncoded 08/23/24 09:36) diarrhea Duradryl Allergy (Unknown, Uncoded 08/23/24 09:36) Unknown quinoa Allergy (Unknown, Uncoded 08/23/24 09:36) diarrhea Medication List - Last Reconciled 08/23/24 by TREY Jarrett-MAURICE albuterol sulfate 90 mcg/actuation 2 puffs inhalation Q6H PRN amitriptyline 10 mg PO BEDTIME 30 days calcium carbonate-vitamin D3 600 mg-25 mcg (1,000 unit) caps PO cholecalciferol (vitamin D3) 50 mcg PO DAILY epinephrine 0.3 mg IM Q4H PRN estradiol 0.01%(0.1mg/gram) (Estrace) 1 g vaginal 3XW 90 days lorazepam 0.5 mg PO DAILY PRN magnesium oxide 400 mg PO BEDTIME 30 days multivitamin 1 tab PO DAILY riboflavin (vitamin B2) 400 mg PO DAILY 30 days rosuvastatin 5 mg PO DAILY sumatriptan succinate 100 mg PO Q2-4H PRN topiramate 25 - 50 mg (1 - 2 x 25 mg) PO BEDTIME 30 days HPI Comments Details: Peg is a pleasant 64-year-old female who is a patient of Dr. Groves. She has a past medical history of iron deficiency anemia, celiac disease, umbilical hernia, vitamin-D deficiency, mitral valve prolapse, anxiety, hyperlipidemia, and migraines. She presents to the office today for follow up of her longstanding history of microscopic hematuria. In discussion with the patient today she discusses her ongoing GI issues she has been experiencing. She discusses her upcoming endoscopy later this week with a provider at [facility]. She discusses late last year she had been experiencing issues with constipation as well as diarrhea at which time she also noted lower urinary tract symptoms. She reports having followed up with her coating technician as well as her obstetrician gynecologist provider at which time a CT was ordered and performed. Patient brings with her today these results. There is no CT findings of abscesses or focal fluid collections in the abdomen and pelvis. Pelvic organs and urinary bladder appear to be unremarkable. Pancreas and kidneys also appeared to be unremarkable. We discussed correlation of bowel issues with lower urinary tract symptoms. Patient reports having had episode of urinary hesitancy however this has since resolved. She discusses her ongoing issues with her migraines in his following up with her neurologist. She reports compliance with Estrace cream as prescribed. She currently denies any bothersome urinary issues or concerns. In office urinalysis results reviewed with the patient today 1+ microscopic hematuria otherwise within normal limits. She currently denies urinary urgency, urinary frequency, incontinence, nocturia, hematuria, dysuria, foul smelling urine, changes to urinary stream, flank pain, fever, and or chills. She is happy with her current voiding parameters. PVR 0mL. Discussed at length potential causes for microscopic hematuria. Previous cytology 09/01 Negative for high-grade urothelial carcinoma, 09/02 Negative for high-grade urothelial carcinoma, 03/02 Negative for high-grade urothelial carcinoma. Patient with previous cystoscopy in the past with Dr. Valera that NAD. She denies any previous history of smoking and or workplace chemical exposure. She otherwise offers no other issues or concerns at this time. [facility] Medical History Microscopic hematuria Surgical History History of hernia surgery Family History Father Cancer Osteoporosis Mother Cancer FHx: colonic polyps Social History Alcohol intake: current Alcohol intake frequency: a few times a month Patient Tobacco Use Status: Never used Tobacco Review of Systems Const Reports no additional complaints Eyes Reports no additional complaints ENT Reports no additional complaints Card Reports as per HPI Resp Reports no additional complaints GI Reports as per HPI Reports as per HPI Musc Reports no additional complaints Psych Reports as per HPI Endo Reports as per HPI Demian/Lymph Reports no additional complaints Aller/Immun Reports no additional complaints Physical Exam Const General: cooperative, healthy appearing, comfortable, no acute distress, well developed, alert and awake Nutritional Appearance: average body habitus Orientation/consciousness: patient oriented x3 Limitations: no limitations HEENT Head: Yes normal to inspection and Yes normocephalic Ears: hearing grossly normal bilaterally Eyes General: appearance normal, both eyes and all related structures Neck Neck: Yes normal visual inspection Chest Chest palpation & inspection: normal inspection of the chest Breast/axilla inspection: normal inspection of the breasts Resp Effort & Inspection: normal respiratory effort and able to speak in complete sentences Cardio Jugular venous distension: no JVD GI Inspection: Yes normal to inspection General: Yes no CVA tenderness Back/Spine/Pelvis Back: no CVA tenderness Skin General skin exam: no rashes or lesions noted Neuro General: patient oriented x3 Cognition (Neuro): normal cognition Gait exam (Neuro): Normal gait present Extrem General: Yes normal to inspection Psych Appearance: grossly normal and well kempt Mental Status: mental status grossly normal Speech and movement: Normal speech and movement present Affect: normal affect Attitude: cooperative Thought process: Normal thought process present Thought content: Normal thought content present Insight: Fair insight present (Psych) Judgement: Fair judgement present (Psych) Office Procedures Post Void Residual Post Residual Void Post Void Residual (PVR): 0 58029-Wxto Void Residual by ultrasound Results AMB Urinalysis, Automated UA Leukoctes 0 Minh/uL Last Edit by JONNY Kapadia on 08/23/24 09:10 UA Nitrite Negative Last Edit by JONNY Kapadia on 08/23/24 09:10 UA Urobilinogen 0.2 mg/dL Last Edit by JONNY Kapadia on 08/23/24 09:10 UA Protein 0 mg/dL Last Edit by JONNY Kapadia on 08/23/24 09:10 UA pH 6.5 Last Edit by JONNY Kapadia on 08/23/24 09:10 UA Blood 25 Rajan/uL Last Edit by JONNY Kapadia on 08/23/24 09:10 UA Specific [facility] 1.000 Last Edit by JONNY Kapadia on 08/23/24 09:10 UA Ketone Negative Last Edit by Shelly Hernández, RMA on 08/23/24 09:10 UA Bilirubin 0 mg/dL Last Edit by Shelly Hernández, RMA on 08/23/24 09:10 UA Glucose 0 mg/dL Last Edit by Shelly Hernández, RMA on 08/23/24 09:10 Results Reviewed Results Reviewed: Laboratory Last Values Urine pH (Auto) 6.5 08/23/24 09:09 Specific [facility] (Auto) 1.000 08/23/24 09:09 Urine Protein (Auto) 0 mg/dL 08/23/24 09:09 Glucose (UA)(Auto) 0 mg/dL 08/23/24 09:09 Urine Ketones (Auto) Negative 08/23/24 09:09 Urine Blood (Auto) 25 Rajan/uL 08/23/24 09:09 Urine Nitrite (Auto) Negative 08/23/24 09:09 Urine Bilirubin (Auto) 0 mg/dL 08/23/24 09:09 Urine Urobilinogen (Auto) 0.2 mg/dL 08/23/24 09:09 Leukocyte Esterase (Auto) 0 Minh/uL 08/23/24 09:09 Assessment & Plan Assessment & Plan (1) Microscopic hematuria: Code(s): R31.29 - Other microscopic hematuria Category: Medical Plan In office urinalysis results reviewed with the patient today; as noted above; will send for cytology Previous cytology results reviewed with the patient today. Continue Estrace cream as discussed and prescribed. Educated, encouraged, and instructed on the importance of drinking plenty of water daily. Discussed at length potential causes for microscopic hematuria. Continue to follow-up with Neurology and Gastroenterology as planned. Will continue with surveillance monitoring at this time Patient reports to be happy with current voiding parameters. Follow-up in 6 months; if not sooner with any issues, concerns, and or questions. Orders: Orders Urine Cytology Today R31.29 - Other microscopic hematuria AMB Urinalysis Automated Today Z13.9 - Encounter for screening, unspecified AMB Post Void Residual by ultrasound Today R30.0 - Dysuria Patient Instructions: The patient had an opportunity to ask questions regarding the treatment plan. All questions were answered. Physical exam, labs, and imaging were discussed and reviewed in detail. As well as risks, benefits, and discussion of treatment choices. No major barriers to understanding were identified. The patient expressed understanding and agreement with the above treatment plan. The patient was made aware they should contact our office by phone for worsening of their current condition, the appearance of new symptoms, or with any questions or concerns. Compliance is encouraged with any medications and follow up testing that is ordered. It is a privilege to be allowed the opportunity to participate in? your urological care.? Again, if you have any questions or concerns If you have any questions or concerns please do not hesitate to contact me. The office is [phone]. This note is constructed using voice recognition software. While every effort has been made to ensure accuracy armoured car escort errors may have been included. Yours sincerely, LAURYN Jarrett Coding Level of Care Code Est Pt Level 3 (38885) Diagnoses Microscopic hematuria R31.29 CPT Codes Post Residual Void - PVR CPT Code: 79626-Eoxy Void Residual by ultrasound ([id number])
== END 2024-08-23 09:40 | disposition home or self-care (01) ==
PROVIDERS: PCP Physician Assistant Medical; Visit Provider Nurse Practitioner Family
DX: R31.29 Other microscopic hematuria (principal); Z13.9 Encounter for screening, unspecified
CPT/HCPCS: 99213

== ENCOUNTER 2025-01-17 11:21 | Outpatient (AMB) | payer MEDICARE, OTHER, SELFPAY ==
[2025-01-17 11:29] VITALS: BP 100/78; BMI 26.2
--- NOTE | 2025-01-17 11:29 | MHC.OFFVIS ---
Vital Signs 01/17/25 11:29 Height 5 ft Weight 134 lb BMI 26.2 BP 100/78 Blood Pressure Location Lt brachial Position Sitting Intake Visit Reasons: 6 mo F/U Intake Note: Patient presents 6 month follow up for migraines/TRISTON- Compliance in chart Manager Collection Required: No Accompanied by: Self / Same As Patient Allergies dichloralphenazone [DICHLORALPHENAZONE] Allergy (Mild, Verified 01/17/25 11:31) ITCHING isometheptene [ISOMETHEPTENE] Allergy (Mild, Verified 01/17/25 11:31) ITCHING metronidazole [From FLAGYL] Allergy (Mild, Verified 01/17/25 11:31) RASH Amidrine Allergy (Mild, Uncoded 08/23/24 09:36) Unknown avocado Allergy (Unknown, Uncoded 08/23/24 09:36) diarrhea Duradryl Allergy (Unknown, Uncoded 08/23/24 09:36) Unknown quinoa Allergy (Unknown, Uncoded 08/23/24 09:36) diarrhea HPI Comments Details: 64-yr-old female presents for f/u visit of migraine and TRISTON. She is experiencing upper GI pressure sensation. For instance, even wearing an under wire bra or a looser non-wired bra- feels like too much pressure. She is still having heart burn s/s. She is struggling w/ constipation- despite using scheduled miralax. She was having bouts of diarrhea- which she now feels was triggered by pepcid tx. Plans to start prilosec- after her f/u GI US. States they had considered Linzess, but possibly held on this due to previous episodes of diarrhea. She is working w/ [facility]- in his scheduled for an abdominal ultrasound. Recently, patient reach out to us as she having daily migraine attack x's 3 weeks. However, more recently she has had 3-4 migraine days per week. Started B2, Mag, Co-Q10. Since the last visit, pt had an increase in migraine attacks. Additionally, her amitriptyline was discontinue. She was trialed on topiramate 25-50 mg which initially made her tired, but then this resolved- initially she felt that it helped, but then she had a week of back to back migraine attacks so she stopped it. Since, she stated that she started taking riboflavin and magnesium consistently and added Co Q10. Since, the migraine frequency has decreased to 3-4 attacks per week. She continues to use OTC analgesics and sumatriptan 33-100mg as needed with the usual good effect, but the headache can come back the next day. She is using her CPAP regularly. Generally tolerates this well-and does not feel that her upper GI pressure/discomfort symptoms are related to her CPAP. 10/12/2024- PAP compliance report [facility] Overall usage 94% Usage greater than 4 hours 84% Average usage days used 5 hours and 14 minutes AirSense 11 AutoSet Serial number: [id number] CPAP 6 cm H2O with EPR 3 Median leaks 0 L/min Residual AHI 1.3 per hour PFSH Medical History Microscopic hematuria Surgical History History of hernia surgery Family History Father Cancer Osteoporosis Mother Cancer FHx: colonic polyps Social History Alcohol intake: current Alcohol intake frequency: a few times a month Patient Tobacco Use Status: Never used Tobacco Physical Exam Vital Signs: Last Vital Signs BP 100/78 01/17/25 11:29 BMI result Body Mass Index 26.2 Const General: cooperative and no acute distress Orientation/consciousness: patient oriented x3 Resp Effort & Inspection: normal respiratory effort and able to speak in complete sentences Neuro General: patient oriented x3 Cranial nerves: Yes CN's II-XII intact bilaterally Cognition (Neuro): normal cognition Psych Appearance: grossly normal Mental Status: mental status grossly normal Speech and movement: Normal speech and movement present Affect: normal affect Attitude: cooperative Assessment & Plan Assessment & Plan (1) Migraine without aura: Code(s): G43.009 - Migraine without aura, not intractable, without status migrainosus Category: Medical Qualifiers: Status migrainosus presence: without status migrainosus Intractability: not intractable Qualified Code(s): G43.009 - Migraine without aura, not intractable, without status migrainosus (2) Severe obstructive sleep apnea: Comment: AHI 26/hr, O2 raj 88%. Code(s): G47.33 - Obstructive sleep apnea (adult) (pediatric) Category: Medical Plan For TRISTON- Continue CPAP 6 cmH2O nightly, as patient is experiencing good clinical effect from use. Continue buffered pressurized saline spray prior to using the Ponaris Nasal Emollient. Patient may benefit from trying a sleep apnea/GERD wedge pillow- which may help her upper GI abdominal discomfort symptoms. Follow-up with ENT as scheduled. Follow-up with GI as scheduled ? For migraine- Patient has discontinued amitriptyline and topiramate- not effective. Continue scheduled OTC Riboflavin 400mg qam, Co Q10 400 mg q.a.m., and Magnesium 400mg qhs. May use OTC Aleve tablets or liquid gels for mild headaches. Continue sumatriptan 100 mg tab- 1/3-1/2-1 tab at onset of migraine. May use CPAP at onset of migraine. Continue green light tx. Patient may benefit from trying a migraine neuromodulation device, such as an eTNS or YURI device- respectively Cefaly/Head-a-Term or Nerivio. Would avoid BBs d/t asthma/COPD dx. Future considerations- CGRP MaB ? f/u in 3-6 months or sooner prn. Coding Level of Care Code Est Pt Level 4 (41973) Diagnoses Migraine without aura and without status migrainosus, not intractable G43.009 Status migrainosus presence: without status migrainosus Intractability: not intractable Severe obstructive sleep apnea G47.33
--- OUTSIDE RECORDS SUMMARY | 2025-01-17 13:39 | XMS_ITS | Encounter Summary ---
Author Organization [facility] Address [address] [place] [address] Care Team Providers Care Viscosity Inspector Name Role Phone León Luevano Primary Care Provider [phone] Reason for Visit * Reason Comments Follow-up Encounter Details Date Type Department Care Team (Latest Contact Info) Description 11/11/2024 9:50 AM EDT Office Visit [facility] [address] [place] [address] Chirag Garcia MD [address] [place] [address] [address] [place] [address] Bradycardia (Primary Dx); Nonrheumatic mitral valve regurgitation; Pure hypercholesterolemia Social History Tobacco Use Types Packs/Day Years Used Date Smoking Tobacco: Never Smokeless Tobacco: Never Alcohol Use Standard Drinks/Week Comments Yes 0 (1 standard drink = 0.6 oz pur e alcohol) rare Housing Instability Answer Date Recorde d Are you worried that in the next 2 months you may not have stable housing? No 10/25/2024 Food Access & Nutrition Answer Date Rec orded Do you have access to a vari ety of food including fruits and vegetables? Yes 10/25/2024 Access to Healthcare Answer Date Record ed Within the last 3 months, tamela w many times did you visit the emergency department for your medical care? 0 10/25/2024 Health Literacy Answer Date Recorded How often do you need to hav e someone help you when you read instructions, pamphlets, or other written material from your doctor or pharmacy? Never 10/25/2024 Caregiver: How often do you need to have someone help you when you read instructions, pamphlets, or other written material from your doctor or pharmacy? Not on file 10/25/2024 Financial Risk Answer Date Recorded How hard is it for you to pa y for the very basics like food, housing, medical care, and air conditioning / heating? Not very hard 10/25/2024 Transportation Answer Date Recorded Has the lack of transportati on kept you from meetings, work, or from getting things needed for daily living? No Has the lack of transportati on kept you from medical appointments or from getting medications? No 10/25/2024 Social Isolation Answer Date Recorded How often do you feel lonely or isolated from th ose around you? Never 10/25/2024 Food Risk Answer Date Recorded Within the past 12 months we worried whether our food would run out before we got money to buy more. Never true 10/25/2024 Within the past 12 months th e food we bought just didn't last and we didn't have money to get more. Never true 10/25/2024 Dependent Care Answer Date Recorded Do you need help finding or paying for care for your loved ones. For example, child welfare assistant or elderly care for an older adult? No 10/25/2024 Education Answer Date Recorded Do you think completing more education or training, like finishing a GED, going to college, or learning a trade, would be helpful for you? No 10/25/2024 Employment and Income Answer Date Recor ded During the last four weeks, have you been actively looking for work? No 10/25/2024 Living Situation Answer Date Recorded What is your living situation? 0 10/25/2024 Interpersonal Safety Answer Date Record ed Physical Abuse 08/25/2024 Verbal Abuse 08/25/2024 Comments No Sex and Gender Information Value Date Recorded Sex Assigned at Female 08/23/2024 12:45 PM EST Legal Sex Female 11:10 PM EST Gender Identity Female 08/23/2024 12:45 PM EST Sexual Orientation Straight 08/23/2024 12 :45 PM EST documented as of this encounter Last Filed Vital Signs Vital Sign Reading Time Taken Comments Blood Pressure 136/70 11/11/2024 9:29 AM EDT Pulse 56 11/11/2024 9:29 AM EDT Temperature - - Respiratory Rate - - Oxygen Saturation 99% 11/11/2024 9:29 AM EDT Inhaled Oxygen Concentration - - Weight 58.9 kg (129 lb 14.4 oz) 11/11/2024 9:29 AM EDT Height 165.1 cm (5' 5 ) 11/11/2024 9:29 AM EDT Body Mass Index 21.62 11/11/2024 9:29 AM EDT documented in this encounter Progress Notes * Chirag Garcia MD - 11/11/2024 9:50 AM EDTAssociated Problem(s): Bradycardia Orders: ECG 12 lead * Chirag Garcia MD - 11/11/2024 9:50 AM EDTAssociated Problem(s): Mitral regurgitation * Chirag Garcia MD - 11/11/2024 9:50 AM EDTAssociated Problem(s): Hyperlipidemia documented in this encounter Plan of Treatment Upcoming Encounters Date Type Department Care Team (Late st Contact Info) Description 01/18/2025 8:15 AM EDT Appointment Radiology Department - [address] [address] 02/13/2025 9:10 AM EDT Office Visit Gastroenterology - [address] [facility] [address] [place] [id number] Charlee Shabazz PA [address] [place] [address] 05/15/2025 11:00 AM EDT Office Visit Orthopedic Surgery - [address] [facility] [address] [place] [address] Luis Peterson, DPM [address] [address] 07/12/2025 8:15 AM EST Office Visit Adult Medicine [facility] [address] [place] [address] León Luevano, PA [address] [place] [address] documented as of this encounter Procedures Procedure Name Priority Date/Time Associated Diagnosis Comments ECG 12-LEAD Routine 11/11/2024 9:39 AM EDT Bradycardia documented in this encounter Results * ECG 12 lead (11/11/2024 9:39 AM EDT) Ventricular Rate ECG 52 BPM GEMUSE Atrial Rate 52 BPM GEMUSE P-R Interval 146 ms GEMUSE QRS Duration 88 ms GEMUSE Q-T Interval 450 ms GEMUSE QTc 418 ms GEMUSE P Wave Gove 86 degrees GEMUSE R Gove 88 degrees GEMUSE T Gove 95 degrees GEMUSE ECG Interpretation Sinus bradycardia Nonspecific T wave abnormality Abnormal ECG No previous ECGs available Confirmed by CHIRAG GARCIA ([id number]) on 11/11/2024 12:32:53 PM GEMUSE 11/11/2024 9:39 AM EDT 11/11/2024 12:32 PM EDT us Chirag Garcia MD ECG ORDERABLES Final Result GEMUSE documented in this encounter Visit Diagnoses Diagnosis Bradycardia- Primary Other specified cardiac dysrhythmias Nonrheumatic mitral valve regurgitation Pure hypercholesterolemia documented in this encounter Discontinued Medications Medication Sig Discontinue Reason Start Date End Da te ferrous sulfate (High Potency Iron) 134 mg (27 mg iron) tablet Take 1 tablet by mouth 1 (one) time each day. Therapy completed 11/11/2024 documented as of this encounter Additional Health Concerns Assessment Noted Time PHQ-9 Depression Total Score: 0 10/26/19 25 12:24 PM EDT A fall risk assessment has been complete d for the patient 07/01/2024 1:51 PM EST documented as of this encounter Care Teams Viscosity Inspector Relationship Specialty Start Date End Date León Luevano PA [address] [place] [address] PCP - General Internal Medicine 07/08/24 documented as of this encounter
== END 2025-01-17 12:38 | disposition home or self-care (01) ==
LOC: HO.HSMS 11:22
PROVIDERS: PCP Physician Assistant Medical; Visit Provider Nurse Practitioner Family
DX: G43.009 Migraine without aura, not intractable, without status migrainosus (principal); G47.33 Obstructive sleep apnea (adult) (pediatric)
CPT/HCPCS: 99214

== ENCOUNTER → 2025-01-17 11:21 | Outpatient (BNVA) | payer MEDICARE, OTHER, SELFPAY | PROVIDERS: PCP Physician Assistant Medical; Visit Provider Nurse Practitioner Family | DX: G43.009 Migraine without aura, not intractable, without status migrainosus (principal); G47.33 Obstructive sleep apnea (adult) (pediatric) | CPT/HCPCS: 99212 ==

== ENCOUNTER 2025-02-20 08:22 | Outpatient (REF) | payer MEDICARE, OTHER, SELFPAY | END 2025-02-20 08:23 | disposition home or self-care (01) | LOC: HO.LNP 08:22 | PROVIDERS: PCP Physician Assistant Medical; Visit Provider Nurse Practitioner Family | DX: R31.29 Other microscopic hematuria (principal); R30.0 Dysuria; Z79.899 Other long term (current) drug therapy; Z13.89 Encounter for screening for other disorder | CPT/HCPCS: 51798; 81003; 88112; 99212 ==

== ENCOUNTER 2025-02-20 08:22 | Outpatient (AMB) | payer MEDICARE, OTHER, SELFPAY ==
--- NOTE | 2025-02-20 08:23 | A.OFFVIS_ITS ---
Intake Visit Reasons: 6m follow up Intake Note: Patient is Present for Follow Up mocxro hematuria Urology Medication: Estradiol Antibiotic Allergies: None Blood Thinners: None Todays PVR:84 mls Director Of Communications Required: No Accompanied by: Self / Same As Patient Allergies dichloralphenazone (DICHLORALPHENAZONE) Allergy (Mild, Verified 02/20/25 09:35) ITCHING isometheptene (ISOMETHEPTENE) Allergy (Mild, Verified 02/20/25 09:35) ITCHING metronidazole (From FLAGYL) Allergy (Mild, Verified 02/20/25 09:35) RASH Amidrine Allergy (Mild, Uncoded 02/20/25 09:35) Unknown avocado Allergy (Unknown, Uncoded 02/20/25 09:35) diarrhea Duradryl Allergy (Unknown, Uncoded 02/20/25 09:35) Unknown quinoa Allergy (Unknown, Uncoded 02/20/25 09:35) diarrhea Medication List - Last Reconciled 02/20/25 by TREY Jarrett-MAURICE albuterol sulfate 90 mcg/actuation 2 puffs inhalation Q6H PRN calcium carbonate-vitamin D3 600 mg-25 mcg (1,000 unit) caps PO cholecalciferol (vitamin D3) 50 mcg PO DAILY coQ10 (ubiquinol) (Qunol Nate CoQ10) 200 mg PO DAILY epinephrine 0.3 mg IM Q4H PRN estradiol 0.01%(0.1mg/gram) (Estrace) 1 g vaginal 3XW 90 days lorazepam 0.5 mg PO DAILY PRN magnesium oxide 400 mg PO BEDTIME 30 days multivitamin 1 tab PO DAILY riboflavin (vitamin B2) 400 mg PO DAILY 30 days rosuvastatin 5 mg PO DAILY sumatriptan succinate 100 mg PO Q2-4H PRN HPI Comments Details: Peg is a pleasant 64-year-old female who is a patient of Dr. Groves. She has a past medical history of iron deficiency anemia, celiac disease, umbilical hernia, vitamin-D deficiency, mitral valve prolapse, anxiety, hyperlipidemia, and migraines. She presents to the office today for follow up of her longstanding history of microscopic hematuria. In discussion with the patient today she discusses her ongoing GI issues she has been experiencing. She discusses having started a recent regimen for her ongoing GI issues and feels this has been helpful. She discusses having increased her MiraLax to twice a day per GI as well as adding alkaline water. 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 She does not feel she has had any bothersome urinary issues or concerns since her last office visit here. She continues to report compliance with Estrace cream as prescribed. In office urinalysis results reviewed with the patient today 1+ microscopic hematuria otherwise within normal limits. She currently denies urinary urgency, urinary frequency, incontinence, nocturia, hematuria, dysuria, foul smelling urine, changes to urinary stream, flank pain, fever, and or chills. She is happy with her current voiding parameters. PVR 84mL. Discussed at length potential causes for microscopic hematuria. Previous cytology 09/01 Negative for high-grade urothelial carcinoma, 09/02 Negative for high-grade urothelial carcinoma, 03/02 Negative for high-grade urothelial carcinoma. Patient with previous cystoscopy in the past with Dr. Valera that NAD. She denies any previous history of smoking and or workplace chemical exposure. She otherwise offers no other issues or concerns at this time. [facility] Medical History Microscopic hematuria Surgical History History of hernia surgery Family History Father Cancer Osteoporosis Mother Cancer FHx: colonic polyps Social History Alcohol intake: current Alcohol intake frequency: a few times a month Patient Tobacco Use Status: Never used Tobacco Review of Systems Const Reports no additional complaints Eyes Reports no additional complaints ENT Reports no additional complaints Card Reports as per HPI Resp Reports no additional complaints GI Reports as per HPI Reports as per HPI Musc Reports no additional complaints Psych Reports as per HPI Endo Reports as per HPI Demian/Lymph Reports no additional complaints Aller/Immun Reports no additional complaints Physical Exam Const General: cooperative, healthy appearing, comfortable, no acute distress, well developed, alert and awake Orientation/consciousness: patient oriented x3 Limitations: no limitations HEENT Head: Yes normal to inspection and Yes normocephalic Ears: hearing grossly normal bilaterally Eyes General: appearance normal, both eyes and all related structures Neck Neck: Yes normal visual inspection Chest Chest palpation & inspection: normal inspection of the chest Breast/axilla inspection: normal inspection of the breasts Resp Effort & Inspection: normal respiratory effort and able to speak in complete sentences Cardio Jugular venous distension: no JVD GI Inspection: Yes normal to inspection General: Yes no CVA tenderness Back/Spine/Pelvis Back: no CVA tenderness Skin General skin exam: no rashes or lesions noted Neuro General: patient oriented x3 Cognition (Neuro): normal cognition Gait exam (Neuro): Normal gait present Extrem General: Yes normal to inspection Psych Appearance: grossly normal and well kempt Mental Status: mental status grossly normal Speech and movement: Normal speech and movement present Affect: normal affect Attitude: cooperative Thought process: Normal thought process present Thought content: Normal thought content present Insight: Fair insight present (Psych) Judgement: Fair judgement present (Psych) Assessment & Plan Assessment & Plan (1) Microscopic hematuria: Code(s): R31.29 - Other microscopic hematuria Category: Medical Plan In office urinalysis results reviewed the patient today; as noted above; will send for urine cytology. PVR 84 mL She currently denies any bothersome urinary issues or concerns. She reports be happy with current voiding parameters. Will continue with surveillance monitoring. We did discussed potential causes of longstanding history of microscopic hematuria as well as further interventions and risks and benefits of these interventions. Continue Estrace cream as discussed and prescribed. Follow-up in 1 year; or sooner with any issues, concerns, and or questions. Orders: Orders Urine Cytology Today R31.29 - Other microscopic hematuria AMB Urinalysis Automated Today Z13.9 - Encounter for screening, unspecified Patient Instructions: The patient had an opportunity to ask questions regarding the treatment plan. All questions were answered. Physical exam, labs, and imaging were discussed and reviewed in detail. As well as risks, benefits, and discussion of treatment choices. No major barriers to understanding were identified. The patient expressed understanding and agreement with the above treatment plan. The patient was made aware they should contact our office by phone for worsening of their current condition, the appearance of new symptoms, or with any questions or concerns. Compliance is encouraged with any medications and follow up testing that is ordered. It is a privilege to be allowed the opportunity to participate in? your urological care.? Again, if you have any questions or concerns If you have any questions or concerns please do not hesitate to contact me. The office is [phone]. This note is constructed using voice recognition software. While every effort has been made to ensure accuracy manager review errors may have been included. Yours sincerely, LAURYN Jarrett Coding Level of Care Code Est Pt Level 3 (91123) Complex EM visit Add On G2211 Diagnoses Microscopic hematuria R31.29
--- OUTSIDE RECORDS SUMMARY | 2025-02-20 08:25 | XMS_ITS | Patient Health Record ---
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 . . please use metatarsal pad shayna; Duration: . 04/23/2015 Not-Taking Voltaren 1 % as directed Externally 07/07/2022 Active Custom Orthotics as directed Add metatarsal pads B/L Dx Hallux Valgus, pes planus B/L 06/18/2021 Active Vitamin D 1000 UNIT 1 tablet Orally Once a day; Duration: 30 day(s) Not-Taking Social History Tobacco Use: [...] W/U Status Risk Notes Problem Hallux valgus (968063632) Hallux Valgus (735.0) Active confirmed Problem Acquired hallux valgus (00512529) Hallux valgus (acquired), left foot (M20.12) Active confirmed Problem Acquired hallux valgus (26412986) Hallux valgus (acquired), right foot (M20.11) Active [...] Coverage Start Date Coverage End Date [employer] ([facility]) [address] [place] [address] [phone] [id number] Peg Azul Self - patient is the insured Medical (General) History Medical History History ICD Code headaches lyme disease chicken pox measles celiac disease Anemia asthma Back,Hip,and Knee pain CAD (Cholesterol) Surgical History Surgery Date(Month/Year) appendectomy 1992 inguinal hernia 1993
--- OUTSIDE RECORDS SUMMARY | 2025-02-20 08:25 | XMS_ITS | Clinical Summary ---
Author Organization [facility] [address] [place] [address] [address] [place] [address] Phone Care Team Providers Care Silo Filler Name Role Phone León Luevano Primary Care Provider [phone] Allergies Active Allergy Reactions Criticality Noted Date Comments Metronidazole Rash Medium 08/19/2024 Food Allergy Formula Diarrhea,Nausea And Vomiting Medium 02/21/2011 avocado Medications clobetasoL (TEMOVATE) 0.05 % cream Apply to affected areas twice daily as needed sparingly. 4 Active riboflavin (VITAMIN B2) 100 mg tablet Take by mouth as needed. Active multivitamin (MULTIPLE VITAMINS ORAL) Take 1 Tab by mouth daily. Active EPINEPHrine (EpiPen 2-Steve) 0.3 mg/0.3 mL injection Inject 0.3 mg into the muscle as needed for Other (anaphylactic reaction). 2-pack. Fill with whichever brand is covered by insurance. 9 Active cholecalciferol (VITAMIN D-3) 50 mcg (2,000 unit) capsule Take by mouth daily as needed. Active estradioL (ESTRACE) 0.01 % (0.1 mg/gram) vaginal cream Insert 2 g into the vagina 1 (one) time each day. Active rosuvastatin (CRESTOR) 5 mg tablet TAKE ONE TABLET BY MOUTH DAILY 90 tablet 1 5 Active SUMAtriptan (IMITREX) 100 mg tablet TAKE ONE TABLET BY MOUTH NEEDED FOR MIGRAINE. MAY REPEAT DOSE ONCE AFTER 2 HOURS IF NEEDED (MAX OF 2 DOSES IN 24 HOURS) 9 tablet 5 Active albuterol HFA (PROAIR HFA ; PROVENTIL HFA ; VENTOLIN HFA) 90 mcg/actuation inhaler INHALE 2 PUFFS INTO LUNGS FOUR TIMES A DAY NEEDED FOR COUGH OR WHEEZING 8.5 g Active magnesium citrate solution Take by mouth 1 (one) time. Active coenzyme Q-10 30 mg capsule Take 1 capsule (30 mg total) by mouth 1 (one) time each day. Active LORazepam (ATIVAN) 0.5 mg tablet Take 1 tablet (0.5 mg total) by mouth every 8 (eight) hours if needed for anxiety. Max Daily Amount: 1.5 mg 30 tablet Active Active Problems Problem Noted Date Diagnosed Date Hallux valgus 02/07/2025 Hallux valgus (acquired), left foot 02/07/2025 Hallux valgus (acquired), right foot 02/07/2025 Uncomplicated asthma 01/10/2025 Bradycardia 09/08/2024 Overview (09/08/2024): Dr. Hoffman Assessment & Plan (01/23/2025 6:51 PM EDT): The patient was found to have a mild sinus bradycardia on today's visit. Artery was noted to be 52 bpm. The patient wears an Apple Watch and occasionally notices her heart rate to go down to 50 bpm. She denies any symptoms of dizziness, near- syncope, or syncope. As such, we will continue monitoring for now. Orders: ECG 12 lead Epigastric pain 08/19/2024 Assessment & Plan (02/13/2025 12:30 PM EDT): Unremarkable extensive workup Suspect functional Will rule out gastroparesis with gastric emptying study Orders: NM Gastric Emptying Study; Future Diarrhea 08/19/2024 Assessment & Plan (11/10/2024 1:30 PM EDT): Orders: Calprotectin, stool; Future Pancreatic elastase 1; Future Gastroesophageal reflux disease without esophagi tis 08/19/2024 TRISTON (obstructive sleep apnea) 06/06/2022 Assessment & Plan (07/08/2024 11:58 AM EST): Orders: Lipid panel with reflex to direct LDL; Future Comprehensive metabolic panel; Future CBC and differential; Future Iron and TIBC; Future Vitamin D 25 hydroxy; Future Ambulatory referral to Pulmonology; Future Hyperlipidemia 06/10/2021 Overview (05/25/2024): Last Assessment & Plan: The patient has a history of hyperlipidemia. She is currently on rosuvastatin 5 mg orally daily. Last lipid panel on 11/09/2023 showed adequate cholesterol control. LFTs on 11/09/2023 were noted to be normal. As such, we will continue her current dose of rosuvastatin. Assessment & Plan (01/23/2025 6:51 PM EDT): The patient has a history of hyperlipidemia. She is currently on rosuvastatin. Will continue her current therapy. Assessment & Plan (07/08/2024 11:58 AM EST): Orders: Lipid panel with reflex to direct LDL; Future Comprehensive metabolic panel; Future CBC and differential; Future Iron and TIBC; Future Vitamin D 25 hydroxy; Future Ambulatory referral to Pulmonology; Future Lab test negative for COVID-19 virus 12/11/2020 Snoring 05/06/2019 Overview (05/25/2024): 04/2019 Home Sleep Study did not reveal sleep apnea or nocturnal hypoxia. Anxiety 10/08/2018 Assessment & Plan (07/08/2024 11:58 AM EST): Orders: Lipid panel with reflex to direct LDL; Future Comprehensive metabolic panel; Future CBC and differential; Future Iron and TIBC; Future Vitamin D 25 hydroxy; Future Ambulatory referral to Pulmonology; Future Umbilical hernia without obstruction and without gangrene 05/28/2016 Headache 03/02/2012 Overview (05/25/2024): Dr. Andres Gabapentin, Imitrex Vulvitis 02/21/2011 Vitamin D deficiency 09/12/2009 Assessment & Plan (07/08/2024 11:58 AM EST): Orders: Lipid panel with reflex to direct LDL; Future Comprehensive metabolic panel; Future CBC and differential; Future Iron and TIBC; Future Vitamin D 25 hydroxy; Future Ambulatory referral to Pulmonology; Future Sinusitis 07/09/2008 Early localized Lyme infection 04/05/2008 Celiac disease 10/19/2006 Overview (05/25/2024): EGD/bx 03/08/2007: pos for celiac. TTG positive at 73. EGD/biopsies 2015, mild celiac changes. Iron deficiency anemia 11/23/2005 Assessment & Plan (07/08/2024 11:58 AM EST): Orders: Lipid panel with reflex to direct LDL; Future Comprehensive metabolic panel; Future CBC and differential; Future Iron and TIBC; Future Vitamin D 25 hydroxy; Future Ambulatory referral to Pulmonology; Future Mitral regurgitation 11/23/2005 Overview (05/25/2024): Last Assessment & Plan: The patient has a history of mitral valve insufficiency. Recent echocardiogram from September 2023 showed evidence of mild mitral valve insufficiency. Her LVEF was noted to be normal on the same study. Her mitral valve insufficiency has no change when compared to her previous echo from 2020. Currently, she denies any cardiac symptoms. As such, would recommend to continue with periodic monitoring of her mitral valve insufficiency with a follow-up echocardiogram in 3 to 5 years. Assessment & Plan (01/23/2025 6:51 PM EDT): The patient has a history of mild MR. Prior echo from September 2023 showed mild MR. The patient will need a follow-up echocardiogram in 2 years for reevaluation of her mitral valve insufficiency. Assessment & Plan (07/08/2024 11:58 AM EST): Orders: Lipid panel with reflex to direct LDL; Future Comprehensive metabolic panel; Future CBC and differential; Future Iron and TIBC; Future Vitamin D 25 hydroxy; Future Ambulatory referral to Pulmonology; Future Resolved Problems Problem Noted Date Diagnosed Date Resolved Date Dyspnea 08/14/2023 11/11/2024 Overview (05/25/2024): Last Assessment & Plan: The patient has symptoms of exertional dyspnea. She also has risk factors for coronary artery disease including the presence of a history of hyperlipidemia and a family history of CAD. Given her exertional symptoms, we will proceed with further testing with a stress echocardiogram to rule out the presence of heart ischemia as a cause of her symptoms. Dizziness 04/17/2021 11/11/2024 Encounters Date Type Department Care Team Description 02/13/2025 9:10 AM EDT Office Visit Gastroenterology - [address] [place] [phone] Charlee Shabazz PA Upper abdominal pain (Primary Dx); Epigastric pain; Chronic idiopathic constipation 01/18/2025 7:59 AM EDT - 01/18/2025 11:59 PM EDT Hospital Encounter Radiology Department - [address] [phone] Epigastric pain Discharge Disposition: Home or Self Care 01/10/2025 8:45 AM EDT Office Visit Adult Medicine [facility] - [address] [phone] León Luevano PA Epigastric pain (Primary Dx); Anxiety; Celiac disease; Pure hypercholesterolemia ; Iron deficiency anemia, unspecified iron deficiency anemia type; TRISTON (obstructive sleep apnea); Nonrheumatic mitral valve regurgitation; Gastroesophageal reflux disease without esophagitis; Vitamin D deficiency; Bradycardia; Uncomplicated asthma, unspecified asthma severity, unspecified whether persistent 12/12/2024 Telephone Gastroenterology - [address] [phone] Charlee Shabazz PA Results 12/09/2024 Telephone Gastroenterology - [address] [phone] Charlee Shabazz PA 11/24/2024 9:37 AM EDT - 11/24/2024 11:59 PM EDT Hospital Encounter Radiology Department - [address] [phone] Encounter for screening mammogram for breast cancer Discharge Disposition: Home or Self Care 11/22/2024 Telephone Gastroenterology - [address] [facility] [address] [place] [address] Charlee Shabazz PA from Last 3 Months Immunizations Name Administration Dates Next Due Hepatitis A-Hepatitis B Adul t (Twinrix) 18yo and older 05/03/2018 Influenza Quadravalent, MDCK , 0.5ml, preservative free (Flucelvax) 6mo and older 06/06/2022,06/05/2021,05/23/2018 Influenza Quadrivalent, 0.5m l, preservative free (Fluarix; FluLaval; Fluzone) ages 6mo and older (Afluria) 3yo and older 06/04/2020 Influenza trivalent, 0.5mL ( Fluad) 65yo and older 07/08/2024,06/09/2023 Influenza trivalent, 0.5mL ( Fluzone High-dose) 65yo and older 06/09/2023 Influenza trivalent, 0.5mL, preservative free (Fluarix; FluLaval; Fluzone) ages 6mo and older (Afluria) 3 years and older 05/28/2016,07/06/2012,08/09/2009 Influenza trivalent, with pr eservative (Fluzone; Afluria) 6mo and older 05/28/2016,07/06/2012,08/09/2009 [employer] SARS-CoV-2 COVID-19, mRNA, LNP-S, preservative free 11/26/2020,11/03/2020,10/08/2020 Pneumococcal conjugate 20 va lent (Prevnar 20, PCV 20) 2mo and older 06/09/2023 Td Tetanus diptheria (Tdvax) 7yo and older 12/09 Td Tetanus diptheria, preser vative free (Tenivac) 7yo and older 12/09/2022 Td, Unspecified 03/08/2004 Tdap Tetanus diptheria acell ular pertussis (Boostrix; Adacel) 7yo and older 11/08/2012 Zoster recombinant (Shingrix ) 19yo and older 08/12/2021,05/06/2021 Surgical History Surgery Date Site/Laterality Comments COLONOSCOPY 06/20/2002 PROCEDURE: HISTORICAL COLONOSCOPY; COMMENT: Negative. MOLE REMOVAL PROCEDURE: HISTORICAL MOLE (REMOVAL OF); COMMENT: Dysplastic nevus abdomen (mild atypia) HERNIA REPAIR PROCEDURE: HISTORICAL HERNIA REPAIR/ING APPENDECTOMY PROCEDURE: CA APPENDECTOMY COLONOSCOPY 03/08/2007 PROCEDURE: HISTORICAL COLONOSCOPY; COMMENT: Negative ESOPHAGOGASTRODUODENOSCOPY 03/08/2007 PROCEDURE: CA EGD TRANSORAL BIOPSY SINGLE/MULTIPLE; COMMENT: duodenal bx: celiac COLONOSCOPY 07/29/2012 PROCEDURE: HISTORICAL COLONOSCOPY; COMMENT: normal COLONOSCOPY 05/26/2016 PROCEDURE: HISTORICAL COLONOSCOPY; COMMENT: random bx: normal. UPPER GASTROINTESTINAL ENDOSCOPY 05/26/2016 PROCEDURE: CA UPPER GI ENDOSCOPY PERFORMED; COMMENT: duodenal bx: mild celiac changes. ESOPHAGOGASTRODUODENOSCOPY 08/10/2024 - 09/09/2024 nl with nl esophageal, sm bowel biopsies Medical History Medical History Date Comments Migraine, unspecified, witho ut mention of intractable migraine without mention of status migrainosus 11/23/2005 DX:Migraine, uns pecified, without mention of intractable migraine without mention of status migrainosus Mitral valve disorders(424.0) 11/23/2005 DX :Mitral valve disorders(424.0) Celiac disease 10/19/2006 DX:Celiac diseas e Family history of malignant neoplasm of gastrointestinal tract 11/27/2006 DX:Family history of maligna nt neoplasm of gastrointestinal tract; COMMENT: single second-degree relative with colon cancer diagnosis at age 75. Negative colonoscopy 06.20.02. Family history of colonic polyps 11/27/2006 DX:Family history of colonic polyps; COMMENT: patient's mom had colon polyps at age 55. Vulvitis 2007 DX:Vulvitis; COM MENT: was seen by Vulvologist in [place] History of dysplastic nevus 02/18/2006 DX:H istory of dysplastic nevus; COMMENT: Dysplastic nevus abdomen (mild atypia) History of actinic keratoses 01/10/2016 DX: History of actinic keratoses; COMMENT: Actinic keratosis Sleep apnea Asthma 2010 Family History Medical History Relation Name Comments Colon cancer Aunt 1 maternal aunt Breast cancer Aunt 2 paternal aunt Other: HIV Brother CABG Father Juan lung cancer, sm oker Hyperlipidemia Father Juan Hypertension Father Juan No Known Problems Maternal Grandfather No Known Problems Maternal Grandmother Colon polyps Mother Amanda osteoporosis, h ip replacements No Known Problems Paternal Grandfather No Known Problems Paternal Grandmother Diabetes Sister Marti Ovarian cancer Neg Hx Uterine cancer Neg Hx Relation Name Status Comments Aunt 1 Aunt 2 Brother Father Juan (Age 84) Maternal Grandfather Maternal Grandmother Mother Amanda (Age 94) Paternal Grandfather Paternal Grandmother Sister Marti Alive Marti Social History Tobacco Use Types Packs/Day Years Used Date Smoking Tobacco: Never Smokeless Tobacco: Never Tobacco Cessation:Counseling Given: Not Answered Alcohol Use Standard Drinks/Week Comments Not Currently 0 (1 standard drink = 0.6 oz [...] Record ed Within the last 3 months, ho betzy many times did you visit the emergency [...] care for your loved ones. For example, director child development center or elderly care for an older adult? [...] Orientation Straight 08/23/2024 12 :45 PM EST Obstetrics History Para Term AB IAB SAB Ectopic Multiple Livin g Live Births 0 0 0 Last Filed Vital Signs Vital Sign Reading Time Taken Comments Blood Pressure 122/76 01/10/2025 8:44 AM EDT Pulse 52 01/10/2025 8:44 AM EDT Temperature 36 C (96.8 F) 01/10/2025 8:44 AM EDT Respiratory Rate 15 01/10/2025 8:44 AM EDT Oxygen Saturation 99% 11/11/2024 9:29 AM EDT Inhaled Oxygen Concentration - - Weight 58.1 kg (128 lb) 02/13/2025 8:59 AM EDT Height 165.1 cm (5' 5 ) 02/13/2025 8:59 AM EDT Body Mass Index 21.3 02/13/2025 8:59 AM EDT Plan of Treatment Upcoming Encounters Date Type Department Care Team (Late st Contact Info) Description 03/21/2025 8:00 AM EDT Appointment [facility] Nuclear Medicine [address] [place] [address] 05/15/2025 11:00 AM EDT Office Visit Orthopedic Surgery [facility] [address] [facility] [address] [place] [phone] Luis Peterson, DPM [address] [facility] [address] [place] [address] 05/17/2025 9:10 AM EDT Office Visit Gastroenterology - 299 [facility] 299 [facility] [address] [place] [address] Charlee Shabazz PA 299 [facility] [address] [place] [address] 07/12/2025 8:15 AM EST Office Visit Adult Medicine [facility] [address] [place] [address] León Luevano PA [address] [place] [address] Health Maintenance Due Date Last Done Comments RSV Immunization Adult Patients (1 - Risk 60-74 years 1-dose series) 2018 Hepatitis B Vaccines (2 of 3 - Hep B Twinrix 3-dose series) 05/31/2018 05/03/2018 COVID-19 Vaccine ( season) 2024 02/21/2022, 07/05/2021, 11/26/2020, Additional history exists Influenza Vaccine (#1) 2025 , 06/09/2023, 06/09/2023, Additional history exists Medicare Annual Wellness Visit 07/08/2025 07/08/2024 Falls Risk Assessment 08/25/2025 08/25/2024 , 07/08/2024, 07/07/2023 Depression Screening 10/25/2025 10/25/2024, 07/07/20 Social Influencers of Health Screening 10/25/2025 10/25/2024 Cervical Cancer Screening: HPV 03/11/2026 03/11/2021 Colorectal Cancer Screening: Colonoscopy 10/07/2026 10/07/2021 Breast Cancer Screening 11/24/2026 11/25/19 25, 11/13/2023, 11/06/2022, Additional history exists Osteoporosis Screening (Bone Density Screening) 05/12/2028 05/12/2018 Cholesterol Screening (Lipid Panel) 01/10/2030 01/10/2025, 07/11/2024, 11/09/2023 DTaP,Tdap,and Td Vaccines (5 - Td or Tdap) 12/09/2032 12/09/2022, 12/09/2022, 11/08/2012, Additional history exists Hepatitis C Screening Completed 09/16/2014 Hepatitis A Vaccines Aged Out 05/03/2018 No long er eligible based on patient's age to complete this topic Zoster Vaccines Completed 08/12/2021, 05/06/2021 Pneumococcal Vaccine: 50+ Years Completed 06/09/2023 HIB Vaccines Aged Out No longer eligi ble based on patient's age to complete this topic HPV Vaccines Aged Out No longer eligi ble based on patient's age to complete this topic IPV Vaccines Aged Out No longer eligi ble based on patient's age to complete this topic MMR Vaccines Aged Out No longer eligi ble based on patient's age to complete this topic Meningococcal ACWY Vaccine Aged Out N o longer eligible based on patient's age to complete this topic Meningococcal B Vaccine Aged Out No l onger eligible based on patient's age to complete this topic RSV Immunization Patients Under 20 months Aged Out No longer eligible based on patient's age to complete this topic Varicella Vaccines Aged Out No longer eligible based on patient's age to complete this topic Procedures Procedure Name Priority Date/Time Associated Diagnosis Comments US ABDOMEN COMPLETE Routine 01/18/2025 8 :24 AM EDT Epigastric pain CBC WITH AUTO DIFFERENTIAL Routine 01/10/2025 9:36 AM EDT Anxiety Celiac disease Pure hypercholesterolemia Iron deficiency anemia, unspecified iron deficiency anemia type TRISTON (obstructive sleep apnea) Nonrheumatic mitral valve regurgitation Gastroesophageal reflux disease without esophagitis Vitamin D deficiency Epigastric pain Bradycardia Uncomplicated asthma, unspecified asthma severity, unspecified whether persistent LIPID PANEL WITH REFLEX TO DIRECT LDL Routine 01/10/2025 9:36 AM EDT Anxiety Celiac disease Pure hypercholesterolemia Iron deficiency anemia, unspecified iron deficiency anemia type TRISTON (obstructive sleep apnea) Nonrheumatic mitral valve regurgitation Gastroesophageal reflux disease without esophagitis Vitamin D deficiency Epigastric pain Bradycardia Uncomplicated asthma, unspecified asthma severity, unspecified whether persistent COMPREHENSIVE METABOLIC PANEL Routine 01/10/2025 9:36 AM EDT Anxiety Celiac disease Pure hypercholesterolemia Iron deficiency anemia, unspecified iron deficiency anemia type TRISTON (obstructive sleep apnea) Nonrheumatic mitral valve regurgitation Gastroesophageal reflux disease without esophagitis Vitamin D deficiency Epigastric pain Bradycardia Uncomplicated asthma, unspecified asthma severity, unspecified whether persistent CBC AND DIFFERENTIAL Routine 01/10/2025 9:36 AM EDT Anxiety Celiac disease Pure hypercholesterolemia Iron deficiency anemia, unspecified iron deficiency anemia type TRISTON (obstructive sleep apnea) Nonrheumatic mitral valve regurgitation Gastroesophageal reflux disease without esophagitis Vitamin D deficiency Epigastric pain Bradycardia Uncomplicated asthma, unspecified asthma severity, unspecified whether persistent IRON AND TIBC Routine 01/10/2025 9:36 AM EDT Anxiety Celiac disease Pure hypercholesterolemia Iron deficiency anemia, unspecified iron deficiency anemia type TRISTON (obstructive sleep apnea) Nonrheumatic mitral valve regurgitation Gastroesophageal reflux disease without esophagitis Vitamin D deficiency Epigastric pain Bradycardia Uncomplicated asthma, unspecified asthma severity, unspecified whether persistent VITAMIN D 25 HYDROXY Routine 01/10/2025 9:36 AM EDT Anxiety Celiac disease Pure hypercholesterolemia Iron deficiency anemia, unspecified iron deficiency anemia type TRISTON (obstructive sleep apnea) Nonrheumatic mitral valve regurgitation Gastroesophageal reflux disease without esophagitis Vitamin D deficiency Epigastric pain Bradycardia Uncomplicated asthma, unspecified asthma severity, unspecified whether persistent THYROID STIMULATING HORMONE WITH REFLEX TO FREE T4 AND FREE T3 Routine 01/10/2025 9:36 AM EDT Anxiety Celiac disease Pure hypercholesterolemia Iron deficiency anemia, unspecified iron deficiency anemia type TRISTON (obstructive sleep apnea) Nonrheumatic mitral valve regurgitation Gastroesophageal reflux disease without esophagitis Vitamin D deficiency Epigastric pain Bradycardia Uncomplicated asthma, unspecified asthma severity, unspecified whether persistent CORTISOL Routine 01/10/2025 9:36 AM EDT Anxiety Celiac disease Pure hypercholesterolemia Iron deficiency anemia, unspecified iron deficiency anemia type TRISTON (obstructive sleep apnea) Nonrheumatic mitral valve regurgitation Gastroesophageal reflux disease without esophagitis Vitamin D deficiency Epigastric pain Bradycardia Uncomplicated asthma, unspecified asthma severity, unspecified whether persistent MG MAMMO DIGITAL SCREENING W RAD BILAT Routine 11/24/2024 9:51 AM EDT Encounter for screening mammogram for breast cancer DEPRESSION SCREENING Routine 07/07/2023 FALLS RISK ASSESSMENT Routine 07/07/2023 COLONOSCOPY Routine 10/07/2021 HPV Routine 03/11/2021 DXA BONE DENSITY STUDY 1+ SITS AXIAL SKEL Routine 05/12/2018 9:25 AM EDT Encounter for screening for osteoporosis HEPATITIS C SCREENING Routine 09/16/2014 from Last 3 Months or Most Recently Relevant to Health Maintenance Results * US Abdomen Complete (01/18/2025 8:24 AM EDT) Anatomical Region Laterality Modality Body Ultrasound 01/18/2025 9:32 AM EDT Impressions 01/18/2025 9:37 AM EDT No abnormality detected. POS [id number] -------- FINAL REPORT -------- Dictated By: Mami Wong Dictated Date: 01/18/2025 09:32 ET Assigned Physician: Mami Wong Reviewed and Electronically Signed By: Mami Wong Signed Date: 01/18/2025 09:37 ET Workstation ID: [id number] Transcribed By: Self Edit Transcribed Date: 01/18/2025 09:32 ET Narrative 01/18/2025 9:37 AM EDT EXAM: Abdominal ultrasound HISTORY: Upper abdominal pain. Epigastric pain. COMPARISON: Ultrasound 06/20/2016, CT abdomen and pelvis 07/21/2024 FINDINGS: Liver: Normal in size measuring 13.0 cm in craniocaudad extent. Parenchymal echotexture appears within normal limits without lesions detected. Gallbladder/Biliary Tree: Gallbladder lumen appears clear without wall thickening or pericholecystic fluid. No intra or extrahepatic biliary ductal dilatation. The common bile duct measures 0.7 cm. Pancreas: No abnormality detected. Spleen: Normal in size measuring 8.6 cm. No focal abnormality. Kidneys: Normal in size with the right measuring 10.5 cm and the left measuring 9.3 cm in craniocaudad extent. No hydronephrosis, focal lesions, or shadowing stones. Vasculature: No abdominal aortic aneurysm. IVC is unremarkable. Procedure Note Mami Wong MD - 01/18/2025 EXAM: Abdominal ultrasound HISTORY: Upper abdominal pain. Epigastric pain. COMPARISON: Ultrasound 06/20/2016, CT abdomen and pelvis 07/21/2024 FINDINGS: Liver: Normal in size measuring 13.0 cm in craniocaudad extent.Parenchymal echotexture appears within normal limits without lesionsdetected. Gallbladder/Biliary Tree: Gallbladder lumen appears clear without wallthickening or pericholecystic fluid. No intra or extrahepatic biliaryductal dilatation. The common bile duct measures 0.7 cm. Pancreas: No abnormality detected. Spleen: Normal in size measuring 8.6 cm. No focal abnormality. Kidneys: Normal in size with the right measuring 10.5 cm and the leftmeasuring 9.3 cm in craniocaudad extent. No hydronephrosis, focallesions, or shadowing stones. Vasculature: No abdominal aortic aneurysm. IVC is unremarkable. IMPRESSION: No abnormality detected. POS [id number] -------- FINAL REPORT -------- Dictated By: Mami Wong Dictated Date: 01/18/2025 09:32 ET Assigned Physician: Mami Wong Reviewed and Electronically Signed By: Mami Wong Signed Date: 01/18/2025 09:37 ET Workstation ID: [id number] Transcribed By: Self Edit Transcribed Date: 01/18/2025 09:32 ET León HEREDIA IMG US PROCEDURES Final R esult * Thyroid stimulating hormone with reflex to free t4 and free t3 (01/10/2025 9:36 AM EDT) TSH 1.42 0.40 - 4.00 mcIU/mL LAB CHEMISTRY METHOD 01/10/2025 1:58 PM EDT [facility] Blood Venous blood specimen / Unknown Venipuncture / Unknown 01/10/2025 9:36 AM EDT 01/10/2025 9:36 AM EDT León HEREDIA LAB BLOOD ORDERABLES Lynda l Result [facility] [address] [place] [address], [place] [phone] * Lipid panel with reflex to direct LDL (01/10/2025 9:36 AM EDT) Cholesterol 182 0 - 200 mg/dL LAB CHEMISTRY METHOD 01/10/2025 3:30 PM EDT [facility] Triglycerides 56 0 - 150 mg/dL LAB CHEMISTRY METHOD 01/10/2025 3:30 PM EDT [facility] HDL 85 >=40 mg/dL LAB CHEMISTRY METHOD 01/10/2025 3:30 PM EDT [facility] LDL Calculated 86 0 - 100 mg/dL LAB CHEMISTRY METHOD 01/10/2025 3:30 PM EDT [facility] VLDL Cholesterol Kaden 11.2 mg/dL LAB CHEMISTRY METHOD 01/10/2025 3:30 PM EDT [facility] Non HDL Chol. (LDL+VLDL) 97 <145 mg/dL LAB CHEMISTRY METHOD 01/10/2025 3:30 PM EDT [facility] Chol/HDL Ratio 2.1 0.0 - 4.4 LAB CHEMISTRY METHOD 01/10/2025 3:30 PM EDT [facility] Blood Venous blood specimen / Unknown Venipuncture / Unknown 01/10/2025 9:36 AM EDT 01/10/2025 9:36 AM EDT León HEREDIA LAB BLOOD ORDERABLES Lynda kline Result [facility] [address] [place] [address], * (ABNORMAL) CBC auto differential (01/10/2025 9:36 AM EDT) WBC 5.7 4.8 - 10.8 K/mcL LAB HEMETOLOGY METHOD 01/10/2025 12:34 PM EDT [facility] RBC 4.30 3.80 - 4.80 M/[facility] LAB HEMETOLOGY METHOD 01/10/2025 12:34 PM EDT [facility] Hemoglobin 13.9 11.5 - 16.0 g/dL LAB HEMETOLOGY METHOD 01/10/2025 12:34 PM EDT [facility] Hematocrit 42.8 35.0 - 47.0 % LAB HEMETOLOGY METHOD 01/10/2025 12:34 PM EDT [facility] MCV 100.0(H) 79.0 - 98.0 FL LAB HEMETOLOGY METHOD 01/10/2025 12:34 PM EDT [facility] MCH 32.5(H) 27.0 - 32.0 pcg LAB HEMETOLOGY METHOD 01/10/2025 12:34 PM EDT [facility] MCHC 32.5 32.0 - 37.0 g/dL LAB HEMETOLOGY METHOD 01/10/2025 12:34 PM EDT [facility] RDW 12.5 11.0 - 15.0 % LAB HEMETOLOGY METHOD 01/10/2025 12:34 PM EDT [facility] Platelets 228 130 - 400 K/[facility] LAB HEMETOLOGY METHOD 01/10/2025 12:34 PM EDT [facility] MPV 10.8 7.0 - 11.0 FL LAB HEMETOLOGY METHOD 01/10/2025 12:34 PM [facility] NRBC 0.0 <1.0 % LAB HEMETOLOGY METHOD 01/10/2025 12:34 PM [facility] NRBC Absolute 0.00 <0.10 K/mcL LAB HEMETOLOGY METHOD 01/10/2025 12:34 PM [facility] Neutrophils Relative 55.8 % LAB HEMETOLOGY METHOD 01/10/2025 12:34 PM [facility] Lymphocytes Relative 24.6 % LAB HEMETOLOGY METHOD 01/10/2025 12:34 PM [facility] Monocytes Relative 10.2 % LAB HEMETOLOGY METHOD 01/10/2025 12:34 PM [facility] Eosinophils Relative 7.4 % LAB HEMETOLOGY METHOD 01/10/2025 12:34 PM [facility] Basophils Relative 1.6 % LAB HEMETOLOGY METHOD 01/10/2025 12:34 PM [facility] Immature Granulocytes Relative 0.4 % LAB HEMETOLOGY METHOD 01/10/2025 12:34 PM [facility] Neutrophils Absolute 3.17 1.50 - 7.00 K/mcL LAB HEMETOLOGY METHOD 01/10/2025 12:34 PM [facility] Lymphocytes Absolute 1.40 1.00 - 5.00 K/mcL LAB HEMETOLOGY METHOD 01/10/2025 12:34 PM [facility] Monocytes Absolute 0.58 0.20 - 1.00 K/mcL LAB HEMETOLOGY METHOD 01/10/2025 12:34 PM [facility] Eosinophils Absolute 0.42 0.00 - 0.50 K/mcL LAB HEMETOLOGY METHOD 01/10/2025 12:34 PM [facility] Basophils Absolute 0.09 0.00 - 0.20 K/mcL LAB HEMETOLOGY METHOD 01/10/2025 12:34 PM EDT [facility] Immature Granulocytes Absolute 0.02 0.00 - 0.03 K/mcL LAB HEMETOLOGY METHOD 01/10/2025 12:34 PM EDT [facility] Blood Venous blood specimen / Unknown Venipuncture / Unknown 01/10/2025 9:36 AM EDT 01/10/2025 9:36 AM EDT [facility] Eleno HEREDIA LAB BLOOD ORDERABLES Lynda l Result [facility] [address] [place] [address], [place] [phone] * Iron and TIBC (01/10/2025 9:36 AM EDT) Iron 96 40 - 150 mcg/dL LAB CHEMISTRY METHOD 01/10/2025 12:55 PM EDT [facility] TIBC 396 250 - 450 mcg/dL LAB CHEMISTRY METHOD 01/10/2025 12:55 PM EDT [facility] Iron Saturation 24 15 - 50 % LAB CHEMISTRY METHOD 01/10/2025 12:55 PM EDT [facility] Blood Venous blood specimen / Unknown Venipuncture / Unknown 01/10/2025 9:36 AM EDT 01/10/2025 9:36 AM EDT León HEREDIA LAB BLOOD ORDERABLES Lynda l Result [facility] [address] [place] [address], [place] [phone] * Vitamin D 25 hydroxy (01/10/2025 9:36 AM EDT) Vit D, 25-Hydroxy 38.5 30.0 - 80.0 ng/mL LAB CHEMISTRY METHOD 01/10/2025 1:58 PM EDT [facility] Blood Venous blood specimen / Unknown Venipuncture / Unknown 01/10/2025 9:36 AM EDT 01/10/2025 9:36 AM EDT León HEREDIA LAB BLOOD ORDERABLES Lynda l Result Performing Organization Address City/[facility]/ZIP Co de Phone Number [facility] [address] [place] [address], [place] [phone] * Cortisol (01/10/2025 9:36 AM EDT) Cortisol 10.7 mcg/dL LAB CHEMISTRY METHOD 01/10/2025 1:58 PM EDT [facility] Blood Venous blood specimen / Unknown Venipuncture / Unknown 01/10/2025 9:36 AM EDT 01/10/2025 9:36 AM EDT Narrative [facility] - 01/10/2025 1:58 PM EDT CORTISOL REFERENCE RANGE 8 AM SPEC: 5.0-23.0 mcg/dL 4 PM SPEC: 3.0-16.0 mcg/dL 8 PM SPEC: <5.0 mcg/dL León HEREDIA LAB BLOOD ORDERABLES Lynda l Result Performing Organization Address [facility]/ZIP Co de Phone Number [facility] [address] [place] [address], [place] [phone] * Comprehensive metabolic panel (01/10/2025 9:36 AM EDT) Sodium 138 133 - 145 mmol/L LAB CHEMISTRY METHOD 01/10/2025 12:57 PM EDT [facility] Potassium 4.0 3.5 - 5.5 mmol/L LAB CHEMISTRY METHOD 01/10/2025 12:57 PM EDT [facility] Chloride 104 96 - 110 mmol/L LAB CHEMISTRY METHOD 01/10/2025 12:57 PM [facility] CO2 29 21 - 32 mmol/L LAB CHEMISTRY METHOD 01/10/2025 12:57 PM [facility] Anion Gap 5 3 - 11 LAB CHEMISTRY METHOD 01/10/2025 12:57 PM [facility] Glucose 83 70 - 100 mg/dL LAB CHEMISTRY METHOD 01/10/2025 12:57 PM [facility] BUN 19 5 - 25 mg/dL LAB CHEMISTRY METHOD 01/10/2025 12:57 PM [facility] Creatinine 0.82 0.50 - 1.10 mg/dL LAB CHEMISTRY METHOD 01/10/2025 12:57 PM [facility] eGFR 79 >=60 mL/min/1. 73m2 LAB CHEMISTRY METHOD 01/10/2025 12:57 PM [facility] Comment:Calculation based on the Chronic Kidney Disease Epidemiology Collaboration (CKD-EPI) equation refit without adjustment for race. BUN/Creatinine Ratio 23.2 LAB CHEMISTRY METHOD 01/10/2025 12:57 PM [facility] Calcium 9.4 8.5 - 10.5 mg/dL LAB CHEMISTRY METHOD 01/10/2025 12:57 PM [facility] AST (SGOT) 35 10 - 42 unit/L LAB CHEMISTRY METHOD 01/10/2025 12:57 PM [facility] ALT (SGPT) 31 10 - 60 unit/L LAB CHEMISTRY METHOD 01/10/2025 12:57 PM [facility] Alkaline Phosphatase 82 42 - 121 unit/L LAB CHEMISTRY METHOD 01/10/2025 12:57 PM [facility] Total Protein 7.5 6.0 - 8.0 g/dL LAB CHEMISTRY METHOD 01/10/2025 12:57 PM [facility] Albumin 4.2 3.2 - 5.0 g/dL LAB CHEMISTRY METHOD 01/10/2025 12:57 PM EDT [facility] Total Bilirubin 0.5 0.0 - 1.4 mg/dL LAB CHEMISTRY METHOD 01/10/2025 12:57 PM EDT [facility] Blood Venous blood specimen / Unknown Venipuncture / Unknown 01/10/2025 9:36 AM EDT 01/10/2025 9:36 AM EDT León HEREDIA LAB BLOOD ORDERABLES Lynda kline Result [facility] [address] [place] [address], [place] [phone] * MG Mammo Digital Screening w Rad bilat (11/24/2024 9:51 AM EDT) Anatomical Region Laterality Modality Breast Bilateral Mammography 11/24/2024 5:06 PM EDT Impressions 11/24/2024 5:06 PM EDT No mammographic evidence of malignancy. BREAST DENSITY: C - The breasts are heterogeneously dense which may obscure small masses. BI-RADS CATEGORY: 1 - NEGATIVE RECOMMENDATION: Screening bilateral mammogram is recommended in 1 year. MAMMO LOCATION: [facility], [address] [place] [address], [id number], . -------- FINAL REPORT -------- Dictated By: Mami Wong Dictated Date: 11/24/2024 17:06 ET Assigned Physician: Mami Wong Reviewed and Electronically Signed By: Mami Wong Signed Date: 11/24/2024 17:06 ET Workstation ID: [id number] Transcribed By: Self Edit Transcribed Date: 11/24/2024 17:06 ET Narrative 11/24/2024 5:06 PM EDT EXAM: Screening Mammogram CLINICAL: 64 years old, Female, routine annual exam. COMPARISON: 11/13/2023 and as far back as 10/25/2020 TECHNIQUE: Bilateral MLO and CC views were obtained digitally with 3-D mammogram (digital breast tomosynthesis). Computer-aided detection was utilized in evaluation of this exam (CAD). FINDINGS: No new suspicious mass, architectural distortion, or suspicious calcifications. Procedure Note Mami Wong MD - 11/24/2024 EXAM: Screening Mammogram CLINICAL: 64 years old, Female, routine annual exam. COMPARISON: 11/13/2023 and as far back as 10/25/2020 TECHNIQUE: Bilateral MLO and CC views were obtained digitally with 3-Dmammogram (digital breast tomosynthesis). Computer-aided detection wasutilized in evaluation of this exam (CAD). FINDINGS: No new suspicious mass, architectural distortion, or suspiciouscalcifications. IMPRESSION: No mammographic evidence of malignancy. BREAST DENSITY: C - The breasts are heterogeneously dense which mayobscure small masses. BI-RADS CATEGORY: 1 - NEGATIVE RECOMMENDATION: Screening bilateral mammogram is recommended in 1 year. MAMMO LOCATION: [facility], [address] [place] [address], [phone], . -------- FINAL REPORT -------- Dictated By: Mami Wong Dictated Date: 11/24/2024 17:06 ET Assigned Physician: Mami Wong Reviewed and Electronically Signed By: Mami Wong Signed Date: 11/24/2024 17:06 ET Workstation ID: [id number] Transcribed By: Self Edit Transcribed Date: 11/24/2024 17:06 ET León HEREDIA IMG BI PROCEDURES Final R esult * Falls Risk Assessment (07/07/2023) Falls Risk Assessment abstracted [facility] Provider HEALTH MAINTENANCE Final Result * Depression Screening (07/07/2023) Depression Screening abstracted [facility] Provider HEALTH MAINTENANCE Final Result * Colonoscopy (10/07/2021) Colonoscopy no interpretation , abstracted Anatomical Region Laterality Modality Other [facility] Provider HEALTH MAINTENANCE Final Result * Cervical Cancer Screening: HPV (03/11/2021) Cervical Cancer Screening: HPV abstracted, negative us Historical Provider HEALTH MAINTENANCE Final Result * DXA BONE DENSITY STUDY 1+ SITS AXIAL SKEL (05/12/2018 9:25 AM EDT) Anatomical Region Laterality Modality Bone Densitometr y 03/22/2018 12:3 1 PM EDT Narrative 05/13/2018 11:33 AM EDT BONE DENSITY (DEXA) Lumbar Spine T-score is 0.1. (SD relative to 20-29 y/o adult) Z-score is 1.5. (SD relative to age matched peers) This is considered normal by WHO criteria. Left Hip T-score is -2.0. Z-score is -0.7. This is considered osteopenia by WHO criteria. There is mild curvature lumbar spine, convexity toward the left. IMPRESSION: This patient is considered to have osteopenia by WHO criteria. This patient has a 8.5% risk of major osteoporotic fracture and a 1.1% risk of hip fracture over the next 10 years. (World Health Organization Fracture Risk Assessment) [facility] Department of Internal Medicine recommends using National Osteoporosis Foundation (NOF) guidelines in treatment decisions related to osteoporosis. NOF guidelines suggest considering treatment for postmenopausal women and men aged 50 or older presenting with the following: History of hip or vertebral fracture. T-score = -2.5 (DXA) at the femoral neck, total hip, or spine, after appropriate evaluation to exclude secondary causes. Low bone mass (T-score between -1.0 and -2.5 at the femoral neck or spine) AND a 10-year probability of a hip fracture = 3% OR a 10-year probability of a major osteoporosis-related fracture = 20% based on the [place]-adapted WHO algorithm Please note that all treatment decisions require clinical judgment and consideration of individual patient factors, including patient preferences, co-morbidities, previous drug use, risk factors not captured in the FRAX model (e.g., frailty, falls, vitamin D deficiency, increased bone turnover, interval significant decline in bone density) and possible under- or over-estimation of fracture risk by FRAX. Optional alternative screening schedule based on giovani Mejia., NEJM August 28, 2011 for patients with osteopenia (based on hip BMD T-score) is as follows: * advanced osteopenia (T scores -2.00 to -2.49), BMD testing every year * moderate osteopenia (T scores -1.50 to -1.99), BMD testing every 5 years mild osteopenia or normal BMD (T scores -1.50 and higher), BMD testing every 15 years Procedure Note Yari Downey MD - 07/29/2022 BONE DENSITY (DEXA) Lumbar Spine T-score is 0.1. (SD relative to 20-29 y/o adult) Z-score is 1.5. (SD relative to age matched peers) This is considered normal by WHO criteria. Left Hip T-score is -2.0. Z-score is -0.7. This is considered osteopenia by WHO criteria. There is mild curvature lumbar spine, convexity toward the left. IMPRESSION: This patient is considered to have osteopenia by WHO criteria. Thispatient has a 8.5% risk of major osteoporotic fracture and a 1.1% risk of hip fracture over the next10 years. (World Health Organization Fracture Risk Assessment) [facility] Department of Internal Medicine recommendsusing National Osteoporosis Foundation (NOF) guidelines in treatment decisions related toosteoporosis. NOF guidelines suggest considering treatment for postmenopausal women and menaged 50 or older presenting with the following: History of hip or vertebral fracture. T-score = -2.5 (DXA) at the femoral neck, total hip, or spine, afterappropriate evaluation to exclude secondary causes. Low bone mass (T-score between -1.0 and -2.5 at the femoral neck or spine)AND a 10-year probability of a hip fracture = 3% OR a 10-year probability of a majorosteoporosis-related fracture = 20% based on the [place]-adapted WHO algorithm Please note that all treatment decisions require clinical judgment andconsideration of individual patient factors, including patient preferences, co- morbidities,previous drug use, risk factors not captured in the FRAX model (e.g., frailty, falls, vitaminD deficiency, increased bone turnover, interval significant decline in bone density) andpossible under- or over-estimation of fracture risk by FRAX. Optional alternative screening schedule based on nathan Mejia al., NEJMJanuary 2011 for patients with osteopenia (based on hip BMD T-score) is as follows: * advanced osteopenia (T scores -2.00 to -2.49), BMD testing every year * moderate osteopenia (T scores -1.50 to -1.99), BMD testing every 5years mild osteopenia or normal BMD (T scores -1.50 and higher), BMD testingevery 15 years Raulito Francis MD IMG DXA PROCEDURES Final Result * Hepatitis C Screening (09/16/2014) [facility] [place] Hepatitis C Screening abstracted Historical Provider HEALTH MAINTENANCE Final Result from Last 3 Months or Most Recently Relevant to Health Maintenance Insurance MEDICARE [facility] Care Teams Silo Filler Relationship Specialty Start Date End Date León Luevano PA [address] [place] [id number] PCP - General Internal Medicine 07/08/24
== END 2025-02-20 09:19 | disposition home or self-care (01) ==
LOC: HO.HUSH 08:22
PROVIDERS: PCP Physician Assistant Medical; Visit Provider Nurse Practitioner Family
DX: R31.29 Other microscopic hematuria (principal); Z13.9 Encounter for screening, unspecified
CPT/HCPCS: 99213; G2211

== ENCOUNTER 2025-07-21 08:45 | Outpatient (AMB) | payer MEDICARE, OTHER, SELFPAY ==
[2025-07-21 09:07] VITALS: BP 130/70; PULSE 65; O2SAT 100; BMI 26.8
--- NOTE | 2025-07-21 09:07 | A.OFFVIS_ITS ---
Vital Signs 07/21/25 09:07 Height 5 ft Weight 137 lb BMI 26.8 BP 130/70 Blood Pressure Location Rt brachial Position Sitting Pulse 65 Pulse Source Pulse Oximeter Pulse Oximetry (%) 100 Oxygen Delivery Method Room Air Intake Visit Reasons: 6 mo follow up Intake Note: Patient presents 6 month follow up for migraines/TRISTON- Compliance in chart Cardiovascular Specialist Required: No Accompanied by: Self / Same As Patient Allergies dichloralphenazone (DICHLORALPHENAZONE) Allergy (Mild, Verified 07/21/25 09:09) ITCHING isometheptene (ISOMETHEPTENE) Allergy (Mild, Verified 07/21/25 09:09) ITCHING metronidazole (From FLAGYL) Allergy (Mild, Verified 07/21/25 09:09) RASH Amidrine Allergy (Mild, Uncoded 07/21/25 09:09) Unknown avocado Allergy (Unknown, Uncoded 07/21/25 09:09) diarrhea Duradryl Allergy (Unknown, Uncoded 07/21/25 09:09) Unknown quinoa Allergy (Unknown, Uncoded 07/21/25 09:09) diarrhea Medication List - Last Reconciled 07/21/25 by TREY Zhang albuterol sulfate 90 mcg/actuation 2 puffs inhalation Q6H PRN calcium carbonate-vitamin D3 600 mg-25 mcg (1,000 unit) caps PO cholecalciferol (vitamin D3) 50 mcg PO DAILY coQ10 (ubiquinol) (Qunol Nate CoQ10) 200 mg PO DAILY epinephrine 0.3 mg IM Q4H PRN estradiol 0.01%(0.1mg/gram) (Estrace) 1 g vaginal 3XW 90 days lorazepam 0.5 mg PO DAILY PRN magnesium oxide 400 mg PO BEDTIME 30 days multivitamin 1 tab PO DAILY nortriptyline 10 mg PO BEDTIME 30 days riboflavin (vitamin B2) 400 mg PO DAILY 30 days rosuvastatin 5 mg PO DAILY sumatriptan succinate 100 mg PO Q2-4H PRN HPI Comments Details: 65-yr-old female presents for f/u visit of migraine and TRISTON. She reports she had exacerbation of GI pain and upset over the summer, and her GI, at [place], suggested that this may be due to the CPAP use in the setting of the redundant colon. She reports she stopped CPAP, started nortriptyline, and started Miralax, which has helped to reduce her abd discomfort. Today, she notes, that she took 1.5 tabs of Lorazepam prior to the 2021 in-lab sleep study which showed an AHI 26/hr. Since starting nortriptyline 10mg qhs, she had less migraines, however, more recently they have increased back to 6-7 attacks in Jul. * However she states that she is able to treat these with smaller dose of triptan- may use just 1/3 tab She has noticed episodes of left burning vicenta sensation * She saw ENT, who felt this was r/t her migraine She had an episode of pronounced phonophobia when she went to see a [employer] performance. 01/17/2025, HPI: She is experiencing upper GI pressure sensation. For instance, even wearing an under wire bra or a looser non-wired bra- feels like too much pressure. She is still having heart burn s/s. She is struggling w/ constipation- despite using scheduled miralax. She was having bouts of diarrhea- which she now feels was triggered by pepcid tx. Plans to start prilosec- after her f/u GI US. States they had considered Linzess, but possibly held on this due to previous episodes of diarrhea. She is working w/ [facility]- in his scheduled for an abdominal ultrasound. Recently, patient reach out to us as she having daily migraine attack x's 3 weeks. However, more recently she has had 3-4 migraine days per week. Started B2, Mag, Co-Q10. Since the last visit, pt had an increase in migraine attacks. Additionally, her amitriptyline was discontinue. She was trialed on topiramate 25-50 mg which initially made her tired, but then this resolved- initially she felt that it helped, but then she had a week of back to back migraine attacks so she stopped it. Since, she stated that she started taking riboflavin and magnesium consistently and added Co Q10. Since, the migraine frequency has decreased to 3-4 attacks per week. She continues to use OTC analgesics and sumatriptan 33-100mg as needed with the usual good effect, but the headache can come back the next day. She is using her CPAP regularly. Generally tolerates this well-and does not feel that her upper GI pressure/discomfort symptoms are related to her CPAP. 10/12/2024- PAP compliance report [facility] Overall usage 94% Usage greater than 4 hours 84% Average usage days used 5 hours and 14 minutes AirSense 11 AutoSet Serial number: [id number] CPAP 6 cm H2O with EPR 3 Median leaks 0 L/min Residual AHI 1.3 per hour PFSH Medical History Microscopic hematuria Surgical History History of hernia surgery Family History Father Cancer Osteoporosis Mother Cancer FHx: colonic polyps Social History Alcohol intake: current Alcohol intake frequency: a few times a month Patient Tobacco Use Status: Never used Tobacco Physical Exam Vital Signs: Last Vital Signs Pulse 65 07/21/25 09:07 BP 130/70 07/21/25 09:07 Pulse Ox 100 07/21/25 09:07 Oxygen Delivery Method Room Air 07/21/25 09:07 BMI result Body Mass Index 26.8 Const General: cooperative and no acute distress Orientation/consciousness: patient oriented x3 Resp Effort & Inspection: normal respiratory effort and able to speak in complete sentences Neuro General: patient oriented x3 Cranial nerves: Yes CN's II-XII intact bilaterally Cognition (Neuro): normal cognition Psych Appearance: grossly normal Mental Status: mental status grossly normal Speech and movement: Normal speech and movement present Affect: normal affect Attitude: cooperative Assessment & Plan Assessment & Plan (1) Migraine without aura: Code(s): G43.009 - Migraine without aura, not intractable, without status migrainosus Category: Medical Qualifiers: Status migrainosus presence: without status migrainosus Intractability: not intractable Qualified Code(s): G43.009 - Migraine without aura, not intractable, without status migrainosus (2) Severe obstructive sleep apnea: Comment: AHI 26/hr, O2 raj 88%. Code(s): G47.33 - Obstructive sleep apnea (adult) (pediatric) Category: Medical Plan For TRISTON- Hold CPAP 6 cmH2O nightly due to GI s/s Will order a f/u in-lab PSG to assess satus of sleep apnea. Continue buffered pressurized saline spray prior to using the Ponaris Nasal Emollient. Patient may benefit from trying a sleep apnea/GERD wedge pillow- which may help her upper GI abdominal discomfort symptoms. Follow-up with ENT as scheduled. Follow-up with GI as scheduled ? For migraine- Continue Nortriptyline 10mg daily at bedtime, may increase to 20mg if migraine frequency continues to be > 6 attacks per month. Trial intranasal lidocaine viscous gel 2% to left inner nostril as needed for burning pain Continue scheduled OTC Riboflavin 400mg qam, Co Q10 400 mg q.a.m., and Magnesium 400mg qhs. May use OTC Aleve tablets or liquid gels for mild headaches. Continue sumatriptan 100 mg tab- 1/3-1/2-1 tab at onset of migraine. May use CPAP at onset of migraine. Continue green light tx. Trial loop ear plugs for phonophobia Previous trials: amitriptyline and topiramate- not effective. Tretament contraindications: Would avoid BBs d/t asthma/COPD dx. Future considerations- CGRP MaB ? f/u in 3-6 months or sooner prn. Orders: Orders RT PSG in-lab sleep study Today G47.33 - Obstructive sleep apnea (adult) (pediatric) Medications: New lidocaine HCl 2% (Lidocaine Viscous) 1ml applied to left and right intranasal passage, MR x's 1 in 15 minutes. Max 4ml per nasal passage per day. 1 mL mucous membrane QID PRN 100 mL 1RF pain 30 days oral dosing syringes 1 mL syringes without needle. To be used as directed with viscous lidocaine intranasal order. 25 ea 6RF Changed From nortriptyline 10 mg PO BEDTIME 30 days 30 caps 3RF To nortriptyline 10 - 20 mg (1 - 2 x 10 mg) PO BEDTIME 60 caps 6RF 30 days Coding Level of Care Code Est Pt Level 4 (45927) Diagnoses Migraine without aura and without status migrainosus, not intractable G43.009 Status migrainosus presence: without status migrainosus Intractability: not intractable Severe obstructive sleep apnea G47.33
== END 2025-07-21 10:17 | disposition home or self-care (01) ==
LOC: HO.HSMS 08:45
PROVIDERS: PCP Physician Assistant Medical; Visit Provider Nurse Practitioner Family
DX: G43.009 Migraine without aura, not intractable, without status migrainosus (principal); G47.33 Obstructive sleep apnea (adult) (pediatric)
CPT/HCPCS: 99214

== ENCOUNTER → 2025-07-21 08:45 | Outpatient (BNVA) | payer MEDICARE, OTHER, SELFPAY | PROVIDERS: PCP Physician Assistant Medical; Visit Provider Nurse Practitioner Family | DX: G43.009 Migraine without aura, not intractable, without status migrainosus (principal); G47.33 Obstructive sleep apnea (adult) (pediatric) | CPT/HCPCS: 99212 ==